=== PATIENT | male | born 1955 | race Caucasian/White ===

== ENCOUNTER 2016-09-08 23:39 | Inpatient (IN) | payer MEDICAID, OTHER ==
[~2016-09-08] VITALS: Ht 177.8 cm; Wt 79.3 kg
[~2016-09-08 23:39] MED LIST: ASPI81 PO; CARV6.252 PO; CYCL1PAK PO; DIGO0.25 PO; ENAL5TAB PO; LORT7.5T3 PO; NAPR550 PO; NEUR600T PO; NIAC500 PO; NITR.4 SL; OMEP20TA PO; SIMV40TA PO; SPIR25TA PO; TRAM50TA PO
[2016-09-08 23:41] VITALS: BP 163/93; PULSE 115; RESP 16; TEMP 98.4; O2SAT 94
[2016-09-09] VITALS (7 sets, daily range): BP systolic 132–164; BP diastolic 78–103; PULSE 91–98; RESP 16–21; TEMP 96.9–98; O2SAT 96–99
[2016-09-09] MEDS ORDERED: ASPI1TAB69 PO (02:53)
[2016-09-09] MEDS ORDERED: CARV6.252 PO (02:53)
[2016-09-09] MEDS ORDERED: ENAL5TAB PO (02:54)
[2016-09-09] MEDS ORDERED: CYCL1TAB29 PO (02:54)
[2016-09-09] MEDS ORDERED: DIGO0.25 PO (02:54)
[2016-09-09] MEDS ORDERED: GABA600T PO (02:55)
[2016-09-09] MEDS ORDERED: HYDR-2376 PO (02:56)
[2016-09-09] MEDS ORDERED: SIMV40TA PO (02:57)
[2016-09-09] MEDS ORDERED: TRAM50TA PO (02:57)
[2016-09-09] MEDS ORDERED: SPIR25TA PO (02:57)
[2016-09-09] MEDS ORDERED: NIAC500T5 PO (02:58)
[2016-09-09] MEDS ORDERED: OMEP20TA PO (02:58)
[2016-09-09] MEDS ORDERED: NITR1SUB3 SL (02:59)
[2016-09-09] MEDS ORDERED: LISI-515 PO (03:02)
[2016-09-09] MEDS ORDERED: VANCOMYCIN INJ 1,400 MG in SODIUM CHLORID 0.9% 500 ML INJ 500 ML IV STA (03:04)
[2016-09-09] MEDS ORDERED: PIPERACIL-TAZO 2.25 GM PREMIX 50 ML IV ONE ×2 (03:15→04:15)
[2016-09-09] MEDS ORDERED: SODIUM CHLOR 0.9% 1000 ML INJ 1,000 ML IV ONE (03:15)
[2016-09-09 03:26] LABS: AUTOMATED NEUTROPHIL # 9.2 TH/MM3 (1.8-7.7); BASOPHIL % 0.2 % (0.0-2.0); EOSINOPHIL # 0.1 TH/MM3 (0-0.4); EOSINOPHIL % 0.5 % (0.0-4.0); HEMATOCRIT 42.7 % (39.0-51.0); HEMO FLAGS DIFF FINAL; LYMPH % 10.8 % (9.0-44.0); LYMPHOCYTE # 1.3 TH/MM3 (1.0-4.8); MEAN CELL VOLUME 89.4 FL (80.0-100.0); MEAN CORPUSCULAR HEMOGLOBIN 31.2 PG (27.0-34.0); MEAN CORPUSCULAR HGB CONC 34.9 % (32.0-36.0); MONO % 9.5 % (0.0-8.0); PLATELET COUNT 106 TH/MM3 (150-450); RED BLOOD COUNT 4.77 MIL/MM3 (4.50-5.90); RED CELL DISTRIBUTION WIDTH 12.6 % (11.6-17.2); WHITE BLOOD COUNT 11.6 TH/MM3 (4.0-11.0)
[2016-09-09 03:37] LABS: APTT (PATIENT) 27.5 SEC (24.3-30.1); INTERNATIONAL NORMALIZED RATIO 0.9 RATIO; PROTHROMBIN TIME - PATIENT 10.2 SEC (9.8-11.6)
--- NOTE | 2016-09-09 03:41 | PD ---
HPI Chief Complaint: Edema Time Seen by Provider: 02:55 Travel History International Travel<30 days: No Contact w/Intl Traveler<30days: No Traveled to known affect area: No History of Present Illness HPI The patient's 61. He has had about 3-4 days of redness swelling and pain about the left elbow. 4 nights prior he drank alcohol until he lost consciousness. The next morning he woke up with minimal erythema pain and swelling about the left elbow distribution. It has since increased and is now constant and involves the proximal half of the forearm and about two thirds of the humerus. Pain is worse with range of motion at the elbow flexion/extension as well as supination pronation. He reports cold sweats last night. He denies fevers. He had a history of IV drug abuse but has not used drugs in greater than 10 years. He suffers with hep C as well as myocardial infarction 3 chronic back pain hypertension alcoholism and one half pack per day smoking habit. He has not had a similar type of rash/infection previously. PFSH Past Medical History High Cholesterol: Yes Diminished Hearing: No Herniated Disk: Yes (2 DISKS ) Hypertension: Yes Tetanus Vaccination: Never Vaccinated Influenza Vaccination: No Past Surgical History Cardiac Surgery: Yes (STENT) Cholecystectomy: Yes Other Surgery: Yes (BACK- HERNIA) Social History Alcohol Use: Yes (THURSDAY ) Tobacco Use: Yes (10 CIG PER DAY) Substance Use: No Allergies-Medications (Allergen,Severity, Reaction): Coded Allergies: No Known Allergies (Unverified , 09/09/16) Reported Meds & Prescriptions Reported Meds & Active Scripts Active Reported Lisinopril 20 Mg Tab 20 Mg PO DAILY Nitroglycerin SL (Nitroglycerin) 0.4 Mg Subl 0.4 Mg SL DIRECTED PRN ONE TABLET UNDER THE TONGUE NEEDED FOR CHEST PAIN, MAY REPEAT EVERY FIVE MINUTES FOR A TOTAL OF 3 DOSES OR CALL 911 IF NO RELIEF Niacin 500 Mg Tab 500 Mg PO DAILY Omeprazole 20 Mg Tab 20 Mg PO DAILY Simvastatin 40 Mg Tab 40 Mg PO HS Tramadol (Tramadol HCl) 50 Mg Tab 50 Mg PO Q6H PRN Hydrocodone-Acetaminophen 7.5-300 Mg Tab 1 Tab PO Q4H PRN Gabapentin 600 Mg Tab 600 Mg PO BID Digoxin 0.25 Mg Tab 0.25 Mg PO DAILY Flexeril (Cyclobenzaprine HCl) 10 Mg Tab 10 Mg PO TID Carvedilol 6.25 Mg Tab 6.25 Mg PO BID Aspirin 81 Mg Tabdr 81 Mg PO DAILY Review of Systems Except as stated in HPI: all other systems reviewed are Neg Skin: Positive Rash Physical Exam Narrative GENERAL: 61-year-old male mild distress well-nourished, cooperative SKIN: Warm and dry. Erythema warmth and tenderness from the midportion of the humerus the middle portion of the forearm on the left side. Erythema edema and warmth is circumferential. Passive flexion of the left elbow elicits severe pain. 2+ radial artery pulses bilaterally. HEAD: Atraumatic. Normocephalic. EYES: Pupils equal and round. No scleral icterus. No injection or drainage. ENT: No nasal bleeding or discharge. Mucous membranes pink and moist. NECK: Trachea midline. No JVD. CARDIOVASCULAR: Regular rhythm. Tachycardia. RESPIRATORY: No accessory muscle use. Clear to auscultation. Breath sounds equal bilaterally. GASTROINTESTINAL: Abdomen soft, non-tender, nondistended. Hepatic and splenic margins not palpable. MUSCULOSKELETAL: Extremities without clubbing, cyanosis, or edema. No obvious deformities. NEUROLOGICAL: Awake and alert. No obvious cranial nerve deficits. Motor grossly within normal limits. Five out of 5 muscle strength in the arms and legs. Normal speech. PSYCHIATRIC: Appropriate mood and affect; insight and judgment normal. Data Data Last Documented VS Vital Signs Date Time Temp Pulse Resp B/P Pulse Ox O2 Delivery O2 Flow Rate FiO2 09/09/16 03:19 16 09/09/16 03:19 98 Room Air 09/09/16 02:51 91 164/103 09/08/16 23:41 98.4 Orders Complete Blood Count With Diff (09/09/16 03:04) Comprehensive Metabolic Panel (09/09/16 03:04) Prothrombin Time / Inr (Pt) (09/09/16 03:04) Act Partial Throm Time (Ptt) (09/09/16 03:04) Lactic Acid Sepsis Protocol (09/09/16 03:04) Urinalysis - C+S If Indicated (09/09/16 03:04) Blood Culture (09/09/16 03:04) Blood Glucose (09/09/16 03:04) Ecg Monitoring (09/09/16 03:04) Iv Access Insert/Monitor (09/09/16 03:04) Oximetry (09/09/16 03:04) Oxygen Administration (09/09/16 03:04) Vancomycin Inj (Vancomycin Inj) (09/09/16 03:04) Piperacil-Tazo 2.25 Gm Premix (Zosyn 2.2 (09/09/16 03:15) Sodium Chlor 0.9% 1000 Ml Inj (Ns 1000 M (09/09/16 03:15) Elbow, Complete (4 Vws) (09/09/16 ) Piperacil-Tazo 2.25 Gm Premix (Zosyn 2.2 (09/09/16 04:15) Consult Orthopedic (09/09/16 ) Admit To Inpatient (09/09/16 ) Vital Signs (Adult) Q4H (09/09/16 04:43) Diet Heart Healthy (09/09/16 Breakfast) Sodium Chloride 0.9% Flush (Ns Flush) (09/09/16 09:00) Sodium Chloride 0.9% Flush (Ns Flush) (09/09/16 04:45) Sodium Chlor 0.9% 1000 Ml Inj (Ns 1000 M (09/09/16 04:43) Vancomycin Consult Pharmacy (Vancomycin (09/09/16 04:45) Acetaminophen (Tylenol) (09/09/16 04:45) Acetamin-Hydrocod 325-5 Mg ([place] 5-325 (09/09/16 04:45) Acetamin-Hydrocod 325-7.5 Mg ([place] 7.5 (09/09/16 04:45) Enoxaparin Inj (Lovenox Inj) (09/09/16 09:00) Inpatient Certification (09/09/16 ) Potassium Chloride (Kcl) (09/09/16 04:45) Piperacil-Tazo 3.375 Gm Premix (Zosyn 3. (09/09/16 08:00) Admit Order (Ed Use Only) (09/09/16 04:53) Labs Laboratory Tests Test 09/09/16 03:15 White Blood Count 11.6 TH/MM3 Red Blood Count 4.77 MIL/MM3 Hemoglobin 14.9 GM/DL Hematocrit 42.7 % Mean Corpuscular Volume 89.4 FL Mean Corpuscular Hemoglobin 31.2 PG Mean Corpuscular Hemoglobin 34.9 % Concent Red Cell Distribution Width 12.6 % Platelet Count 106 TH/MM3 Mean Platelet Volume 9.7 FL Neutrophils (%) (Auto) 79.0 % Lymphocytes (%) (Auto) 10.8 % Monocytes (%) (Auto) 9.5 % Eosinophils (%) (Auto) 0.5 % Basophils (%) (Auto) 0.2 % Neutrophils # (Auto) 9.2 TH/MM3 Lymphocytes # (Auto) 1.3 TH/MM3 Monocytes # (Auto) 1.1 TH/MM3 Eosinophils # (Auto) 0.1 TH/MM3 Basophils # (Auto) 0.0 TH/MM3 CBC Comment DIFF FINAL Differential Comment Prothrombin Time 10.2 SEC Prothromb Time International 0.9 RATIO Ratio Activated Partial 27.5 SEC Thromboplast Time Sodium Level 135 MEQ/L Potassium Level 3.4 MEQ/L Chloride Level 99 MEQ/L Carbon Dioxide Level 29.4 MEQ/L Anion Gap 7 MEQ/L Blood Urea Nitrogen 15 MG/DL Creatinine 1.15 MG/DL Estimat Glomerular Filtration 65 ML/MIN Rate Random Glucose 109 MG/DL Lactic Acid Level 0.8 mmol/L Calcium Level 9.2 MG/DL Total Bilirubin 0.6 MG/DL Aspartate Amino Transf 17 U/L (AST/SGOT) Alanine Aminotransferase 23 U/L (ALT/SGPT) Alkaline Phosphatase 76 U/L Total Protein 8.4 GM/DL Albumin 3.7 GM/DL [facility] Medical Decision Making Medical Screen Exam Complete: Yes Emergency Medical Condition: Yes Medical Record Reviewed: Yes Differential Diagnosis Cellulitis, sepsis, abscess, septic arthritis, inflammatory arthritis Narrative Course CBC & BMP Diagram 09/09/16 03:15 Lactic acid 0.8 LFTs normal INR 0.9 Last 24 hours Impressions Elbow X-Ray 09/09/16 0000 Signed Impressions: Service Date/Time: Friday, September 09, 2016 03:21 - CONCLUSION: 1. There is no evidence of acute fracture. No joint effusion is seen Rui oMra MD The patient will be admitted for IV antibiotics, Zosyn and vancomycin. Orthopedics evaluation for possible septic arthritis. There is pain with passive range of motion/flexion/extension of the left upper extremity. Case discussed with Domenico Torres. We will admit under Dr. Mercer. Dr Abernathy of orthopedic surgery evaluated the patient. MRI L elbow ordered. Diagnosis Primary Impression: Cellulitis of left elbow Additional Impressions: Cellulitis of left arm Hypokalemia Admitting Information Admitting Physician Requests: Admit Rony Kwok MD Sep 09, 2016 03:41
[2016-09-09 03:43] LABS: ALT (GPT) 23 U/L (12-78); ANION GAP 7 MEQ/L (5-15); AST (GOT) 17 U/L (15-37); BICARBONATE 29.4 MEQ/L (21.0-32.0); BLOOD UREA NITROGEN 15 MG/DL (7-18); CHLORIDE 99 MEQ/L (98-107); GLOMERULAR FILTRATION RATE 65 ML/MIN (>89); POTASSIUM 3.4 MEQ/L (3.5-5.1); SODIUM (NA) 135 MEQ/L (136-145)
[2016-09-09 03:45] LABS: ALKALINE PHOSPHATASE 76 U/L (45-117); TOTAL BILIRUBIN ADULT 0.6 MG/DL (0.2-1.0)
--- NOTE | 2016-09-09 04:10 | RADRPT ---
EXAM DATE/TIME: 09/09/2016 03:21 [facility] COMPARISON: No previous studies available for comparison. INDICATIONS : Left elbow redness and swelling. MEDICAL HISTORY : None. SURGICAL HISTORY : None. ENCOUNTER: Initial ACUITY: 3 days PAIN SCORE: 9/10 LOCATION: Left elbow FINDINGS: There is no evidence of acute fracture. Bony mineralization is normal. There is minimal spurring at t he triceps insertion. There is no evidence of joint effusion. CONCLUSION: 1. There is no evidence of acute fracture. No joint effusion is seen Rui Mora MD on September 09, 2016 at 4:08 Board Certified Radiologist. This report was verified electronically.
[2016-09-09] MEDS ORDERED: ACETAMINOPHEN/HYDROcodone 325 MG/5 MG TAB PO PRN (04:45)
[2016-09-09] MEDS ORDERED: POTASSIUM CHLORIDE 10 MEQ CONTROLLED RELEASE TAB PO ONE (04:45)
[2016-09-09] MEDS ORDERED: ACETAMINOPHEN/HYDROcodone 325 MG/7.5 MG TAB PO PRN (04:45)
[2016-09-09] MEDS ORDERED: ACETAMINOPHEN 500 MG CPLT PO PRN (04:45)
[2016-09-09] MEDS ORDERED: Vancomycin Consult Pharmacy 1 EA XX SCH (04:45)
[2016-09-09] MEDS: SODIUM CHLOR 0.9% 1000 ML INJ 1,000 ML IV SCH ×2 (06:29→14:44)
--- NOTE | 2016-09-09 06:55 | PD.ORT.PN ---
Subjective Subjective Remarks s/p fall while drunk 3 days ago does not remember fall. states was "blackout drunk". reports left elbow pain and swelling. Objective Vitals Vital Signs Date Time Temp Pulse Resp B/P Pulse Ox O2 Delivery O2 Flow Rate FiO2 09/09/16 05:39 91 16 162/87 98 Room Air 09/09/16 03:19 16 09/09/16 03:19 98 Room Air 09/09/16 02:51 91 20 164/103 96 Room Air 09/09/16 00:17 16 Room Air 09/08/16 23:41 98.4 115 16 163/93 94 Room Air Result Diagram: 09/09/16 0315 09/09/16 0315 Other Results Laboratory Tests Test 09/09/16 03:15 Prothrombin Time 10.2 SEC (9.8-11.6) Prothromb Time International 0.9 RATIO Ratio Imaging Last 24 hours Impressions Elbow X-Ray 09/09/16 0000 Signed Impressions: Service Date/Time: Friday, September 09, 2016 03:21 - CONCLUSION: 1. There is no evidence of acute fracture. No joint effusion is seen Rui Mora MD Objective Remarks LUE: +swelling of elbow. tender to touch. pain with motion. no pain in wrist or shoulder. NVI Assessment & Plan Assessment and Plan 1) Left elbow hematoma vs septic joint -resume diet -npo after MN -MRI today to evaluate for septic joint Obi Schmitt Sep 09, 2016 06:55
[2016-09-09] MEDS ORDERED: POTASSIUM CL 40 MEQ/30 ML LIQ UDC PO ONE (07:30)
[2016-09-09 07:56] LABS: BLOOD, URINE NEG (NEG); GLUCOSE,URINE NEG (NEG); KETONE, URINE NEG (NEG); MUCUS URINE FEW /lpf (OCC); NITRITE,URINE NEG (NEG); SQUAMOUS EPITHELIAL CELL URINE <1 /hpf (0-5); URINE COLOR YELLOW (YELLW/STRAW)
[2016-09-09 07:57] LABS: COMMENT (UR) CATH-CULT NOT IND; CULTURE IF INDICATED CATH CULTURE NOT IND
[2016-09-09] MEDS: PIPERACIL-TAZO 3.375 GM PREMIX 50 ML IV SCH ×3 (10:04→21:29)
[2016-09-09] MEDS: SODIUM CHLORIDE 0.9% FLUSH 5 ML FLUSH IV SCH ×2 (10:05→21:30)
[2016-09-09] MEDS: ENOXAPARIN SODIUM 40 MG/0.4 ML SYRINGE SQ SCH (10:08)
[2016-09-09] MEDS ORDERED: NITROGLYCERIN 0.4 MG SL 25 TABS/BTL SL PRN (10:15)
[2016-09-09] MEDS ORDERED: traMADol HCL 50 MG TAB PO PRN (10:15)
--- NOTE | 2016-09-09 10:58 | MH ---
cc: FERNANDO MERCER DATE OF ADMISSION: 09/09/2016 DATE OF 1955 CHIEF COMPLAINT Left elbow swelling and pain. TRAVEL No travel in less than 30 days. HISTORY OF PRESENT ILLNESS This is a pleasant 61-year-old male who according to the record and the patient was drinking a large amount of alcohol approximately three to four days ago. The patient lost consciousness and is unaware of any injury or falls. The patient awoke the next morning complaining of some erythema and pain with swelling around his left elbow. The pain and symptoms have continued to evolve over the past three days to the point that it is very painful to move in any direction pain. The patient says the pain is now constant and as stated he is unaware of what caused the swelling and induration. According to the record, the patient has a history of IV drug use, but has not used anything in the past 10 years. He does have a history of heart disease as well as hepatitis C and other comorbidities. The patient currently is a tobacco user. The patient does complain of some coughing at random. He states that he took his medications yesterday morning and takes them as prescribed. He is alert, responds to verbal stimuli, mild anxiety noted. The patient denies any headache. Denies any fever, no nausea, vomiting and is a fairly good historian. MEDICAL HISTORY 1. Hyperlipidemia 2. Degenerative disk disease 3. Hypertension 4. ETOH abuse 5. Cardiovascular disease PAST SURGICAL HISTORY 1. Cardiac stents 2. Cholecystectomy 3. Back surgery ALLERGIES No known allergies. MEDICATIONS Reported: 1. Lisinopril 2. Nitroglycerin sublingual 3. Niacin 4. Omeprazole 5. Simvastatin 6. Tramadol 7. Hydrocodone 8. Acetaminophen 9. Gabapentin 10. Digoxin 11. Flexeril 13. Coreg 14. Aspirin SOCIAL HISTORY The patient lives alone in an efficiency apartment. He admits to smoking a half a pack of cigarettes a day. Daily alcohol use. Last drink was three days ago. No illicit drug use. FAMILY HISTORY Heart disease and hypertension. REVIEW OF SYSTEMS A 12-point review was done. Positives noted painful left elbow with erythema and edema, anxiety mild, cough with generalized fatigue. Other systems are negative or unremarkable. PHYSICAL EXAMINATION VITAL SIGNS: Temperature is 98.4, pulse now 91, has been as high as 115 in the ER, respirations 16, blood pressure 162/87, O2 sat 98 on room air. GENERAL: A 61-year-old male, well nourished, resting on the stretcher, mild anxiety over current condition. HEENT: Atraumatic, normocephalic. PERRL at two. Mucous membranes are slightly pale, but moist. No nasal discharge. NECK: Supple. Trachea is midline. SKIN: His skin is warm and dry. As stated noted erythema and tenderness beginning in the humerus area. The erythema is noted in the forearm and up above the antecubital fossa. Radial pulse is 3+ bilateral. CARDIOVASCULAR: Regular rate and rhythm. No murmurs, rubs or gallops appreciated. No edema. Pulses are intact. RESPIRATORY: Essentially clear anteriorly and posteriorly with no wheezes, rales or rhonchi bilateral. GASTROINTESTINAL: Abdomen is soft, nontender, nondistended. Active bowel sounds in all for quadrants. MUSCULOSKELETAL: He can move his extremities with purpose with the noted pain in the left elbow and arm. 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 NEUROLOGIC: He is alert, oriented a fairly good historian. Normal speech. PSYCHIATRIC: Affect and mood is appropriate with some mild anxiety noted. DIAGNOSTIC DATA WBC count 11.6, RBC 4.77, hemoglobin 14.9, hematocrit 42.7, platelet count 106, neutrophil auto 79, monocyte auto 9.5. PT INR 0.9. Chemistry sodium 135, potassium 3.4, chloride 99, carbon dioxide 29.4, amnion gap 7, BUN 15, creatinine 1.15, random glucose 109, lactic acid 0.8, calcium 9.2, bilirubin 0.6, AST 17, ALT 23, alkaline phosphatase 76, total protein 8.4, albumin 3.7. Urine is yellow and clear. The pH is 6, specific gravity 1.013, trace of protein, negative for glucose, ketones, occult blood, nitrite or bilirubin. Urobilinogen is less than 2, negative leukocyte esterase, few amounts of urine mucus. Cath culture was not obtained. DIAGNOSTIC DATA Left elbow shows no evidence of acute fracture, no joint effusion is seen. ASSESSMENT/PLAN 1. sepsis with septic arthritis left elbow ? SEPTIC 2. Cellulitis left elbow and arm 3. Hypokalemia, mild 4. Hyponatremia, mild 5. Leukocytosis 6. Hypertension 7. ETOH abuse We are going to admit this patient for inpatient status. Vital signs will be at least every four hours, heart healthy diet, gentle hydration with sodium chloride to support, IV antibiotics with vancomycin and Zosyn. We will consult ID for his expert opinion. Ortho has been consulted for his expert opinion. The plan is to see the patient today, get an MRI of his left elbow n.p.o. him at midnight for any possible procedures that may need to be done in the morning. We will monitor all labs, vital signs, hydration which will include labs for in the morning. To my knowledge, the patient is full code, full aggressive care and we will follow. Dictated by CATRACHO Serrano Fernando Mercer MD JP/KIKE /9:01 AM /10:57 AM PT WAS SEEN AND EXAMINED ON DAY OF ADMISSION ABOVE, IN ER FACE TO FACE TIME SPENT WITH PT CHART WAS REVIEWED IN DETAIL, INCLUDING LABS MEDS AND RAD DATA NOTES WERE REVIEWED DARRIUS HAYDEN ABOUT PLAN OF CARE DARRIUS PT COUNCELLED ABOUT ANTI SMOKING AND CESSATION OF ETOH. PT UNDERSTOOD DARRIUS RN IN ER SKY
[2016-09-09] MEDS: NIACIN 100 MG TAB PO SCH (11:00)
--- NOTE | 2016-09-09 11:26 | MB ---
cc: JOSE A NIETO DATE OF ADMISSION: 09/08/2016 DATE OF CONSULTATION: 09/09/2016 REASON FOR CONSULTATION: Left elbow pain. CONSULTING PHYSICIAN Dr. Rony Kwok LUCAS Fabian is a 61-year-old male who presented emergency room with a complaint of approximately 3 days of elbow pain. He states that on Thursday nights he drank excessively. He passed out and had lost consciousness. He does not recall any falls or injuries. He has complained of increasing left elbow pain and swelling since Thursday morning. Pain is worse with movement. He also has a history of IV drug use approximately ten years ago. He also has a history myocardial infarction, hepatitis C, hypertension and alcohol abuse and tobacco dependence. He denies any skin wounds or specific injury to the elbow. Pain is worse with movement. PAST MEDICAL HISTORY/ILLNESSES 1. High cholesterol 2. Hypertension 3. herniated disk. SURGERIES 1. Cardiac stent placement 2. cholecystectomy 3. hernia repair. ALLERGIES NO KNOWN DRUG ALLERGIES. MEDICATIONS 1. Lisinopril 2. Nitroglycerin 3. Niacin 4. Omeprazole 5. Simvastatin 6. Tramadol 7. Hydrocodone 8. Gabapentin 9. Digoxin 10. Flexeril 11. Carvedilol 12. Aspirin SOCIAL HISTORY The patient drinks alcohol and smokes. He denies any current drug use. FAMILY HISTORY Noncontributory. REVIEW OF SYSTEMS The patient denies headache, visual changes, neck pain, chest pain, shortness of breath, abdominal pain, nausea or recent weight loss or numbness and of extremities. He complains of left elbow pain. Pain is worse with movement. PHYSICAL EXAMINATION IN GENERAL: The patient is a well-developed, well-nourished 61-year male in no acute distress. He is awake and alert. VITAL SIGNS: Vital signs: Temperature 90.4, pulse 91, respirations 16, blood pressure 162/87, O2 sat 90% on room air. HEAD, EYES, EARS, NOSE, AND THROAT: The patient is normocephalic. Pupils are equal. NECK: Soft, nontender. Trachea is midline. ABDOMEN: Soft, nontender, nondistended. EXTREMITIES: Examination of left arm reveals no pain with shoulder, wrist or finger motion. He has intact sensation radial and median nerve distribution. He has good cap refill is fingers. Examination of elbow reveals range of motion from approximately a degrees up to 100 degrees. He has diffuse swelling around the forearm. Forearm department are soft, compressible with no sign of compartment syndrome. There is no redness, erythema or warmth to the forearm. He is diffusely tender around the flexor and extensor muscles near the elbow. Examination of right arm reveals no pain with shoulder or wrist motion. Skin is intact. His radial pulses palpable. Sensation is intact in all fingers. Examination of bilateral lower extremities shows no pain with hip, knee or ankle motion. Skin is intact both feet. Dorsalis pedis pulses are palpable. X-RAYS X-rays of left elbow were reviewed x-rays revealed evidence of acute fracture-dislocation. IMPRESSION 1. Left elbow pain and swelling. 2. Alcohol abuse 3. Tobacco abuse. PLAN The options were discussed with the patient. At this point I do not see any gross signs of infection. However, he does have significant pain with elbow range of motion as well as moderate swelling of the forearm. At this point I would recommend an MRI of his elbow to evaluate for a possible abscess or possible joint effusion. He does have a joint effusion. He may need aspiration of possible surgical arthrotomy for irrigation debridement. I will follow up with the patient after MRI is completed. All questions were answered. A mid-level provider in my office, nurse practitioner or PA, may see this patient on a follow-up basis and continue to implement the objective of this plan including: Starting or adjusting medications, injections of muscle, tendon, bursa or joints, cast application, orthotic or brace application, physical therapy, further radiographic studies including x-ray, MRI, CT, ultrasounds or bone scan, vascular studies, neurologic studies, or other specialist consultations, and proceeding with surgical management as appropriate. MD SHIREEN Mcallister/anitra /10:57 AM /11:05 AM
[2016-09-09] MEDS ORDERED: GADODIAMIDE PF 287 MG/ML 5 ML VIAL (for RAD MRI) IV ONE (11:47)
[2016-09-09] MEDS: LISINOPRIL 20 MG TAB PO SCH (12:17)
[2016-09-09] MEDS: DIGOXIN 0.25 MG TAB PO SCH (12:17)
[2016-09-09] MEDS: PANTOPRAZOLE SOD 20 MG DELAYED RELEASE TAB PO SCH (12:17)
[2016-09-09] MEDS: CYCLOBENZAPRINE HCL 10 MG TAB PO SCH ×2 (12:17→17:29)
[2016-09-09] MEDS: ACETAMINOPHEN/HYDROcodone 325 MG/7.5 MG TAB PO PRN ×2 (12:18→17:25)
[2016-09-09] MEDS: CARVEDILOL 6.25 MG TAB PO SCH ×2 (12:18→21:30)
[2016-09-09] MEDS: GABAPENTIN 300 MG CAP PO SCH ×2 (12:18→21:30)
[2016-09-09] MEDS: ASPIRIN EC 81 MG TABEC PO SCH (12:18)
--- NOTE | 2016-09-09 13:10 | RADRPT ---
EXAM DATE/TIME: 09/09/2016 11:12 [facility] COMPARISON: No previous studies available for comparison. INDICATIONS : Abscess. Left elbow red and swollen. CONTRAST: 15 cc Omniscan (gadodiamide) IV MEDICAL HISTORY : Hepatitis C. Myocardial infarction. Hypertension. SURGICAL HISTORY : Coronary artery stent. Discectomy, lumbar. ENCOUNTER: Initial ACUITY: 2 day PAIN SCORE: 8/10 LOCATION: Left elbow TECHNIQUE: Multiplanar, multisequence MRI examination was performed without contrast and after the intravenous a dministration of gadolinium. FINDINGS: There are moderate nonspecific edematous changes involving the deep and superficial subcutaneous tiss ues of the elbow region circumferentially. There is edema signal involving portions of the distal bic eps, brachialis and brachioradialis muscles. There is a small irregularly shaped fluid signal collection with peripheral enhancement in the superf icial subcutaneous tissues of the antecubital fossa region just deep to and laterally adjacent to the bicipital tendon which is likely a small abscess collection. The collection has a maximum oblong dim ension of just over 3 cm. There is minimal elbow joint fluid present which appears fairly benign. Bone marrow signal is unremar kable throughout. CONCLUSION: Small superficial antecubital fossa abscess with cellulitic changes and mild myositis. Domenico Burnham MD on September 09, 2016 at 12:52 Board Certified Radiologist. This report was verified electronically.
--- NOTE | 2016-09-09 14:16 | PD.CONS ---
History of Present Illness Service Infectious disease Consult Requested By Dr Idalia Mercer Reason for Consult Evaluate patient with cellulitis in the left upper extremity, possible septic joint Primary Care Physician Familia Reagan DO Diagnoses: History of Present Illness Patient seen and examined. Records reviewed. Patient is a 61-year-old male presented to the hospital for further evaluation of worsening pain, redness, and swelling in his left elbow. His problems started about 3 days prior to admission when he woke up and he noted some redness and pain in his left elbow. The pain and swelling as well as redness goes around the antecubital area. He does not remember having any injury, and fall initially, but on further questioning there was apparently mentioned that he he fell. His symptoms persisted, and the pain was getting worse so he presented to the hospital for further evaluation and treatment. He does not remember having any fever or chills. He's had some cough around the same time that he started having symptoms, but denies any sputum production, sore throat, chest pain, or any shortness of breath. There is been no nausea or vomiting or abdominal pain or any urinary complaints. He denies having any insect bite or any cuts or bruising in his left upper extremity. There is a remote history of IV drug use, and patient claimed the last time he used drugs was about 10-12 years ago. Since admission he has not been febrile. Patient had an MRI in his left upper extremity and there was only a small monitor elbow joint fluid, but there was findings of an abscess in the antecubital fossa up plus findings suggestive of some myositis in the biceps, and brachioradialis, as well as brachialis muscle. His WBC is mildly elevated at 11. Infectious disease consultation has been requested to evaluate the patient. Review of Systems Constitutional: DENIES: Fever, Chills Eyes: DENIES: Eye pain Ears, nose, mouth, throat: DENIES: Nasal discharge, Oral lesions, Ear Pain, Epistaxis, Sinus Pain Respiratory: COMPLAINS OF: Cough, DENIES: Sputum production, Shortness of breath Cardiovascular: DENIES: Chest pain, Palpitations Gastrointestinal: DENIES: Abdominal pain, Diarrhea, Nausea, Vomiting, Difficulty Swallowing Genitourinary: DENIES: Dysuria, Nocturia Musculoskeletal: COMPLAINS OF: Joint pain, Muscle aches, Joint Swelling Integumentary: DENIES: Rash Hematologic/lymphatic: DENIES: Bruising, Lymphadenopathy Immunologic/allergic: DENIES: Urticaria Neurologic: DENIES: Headache Psychiatric: DENIES: Anxiety, Mood changes, Depression, Hallucinations Past Family Social History Allergies: Coded Allergies: No Known Allergies (Unverified , 09/09/16) Past Medical History Hyperlipidemia Degenerative disk disease Hypertension ETOH abuse Cardiovascular disease Back pain Chronic narcotic dependence Past Surgical History Previous cardiac catheterization and Cardiac stents Cholecystectomy Back surgery Active Ordered Medications Tylenol [place] Aspirin Coreg Flexeril Lanoxin Neurontin Prinivil Morphine Niacin SL NTG Protonix Zosyn Pravachol Ultram Vancomycin Social History The patient lives alone in an efficiency apartment. He admits to smoking a half a pack of cigarettes a day. Daily alcohol use. Last drink was three days ago. No illicit drug use. Chronically on narcotics for chronic pain, goes to a pain management clinic Remote hx of IVDU, last use was 12 years ago Physical Exam Vital Signs Vital Signs Date Time Temp Pulse Resp B/P Pulse Ox O2 Delivery O2 Flow Rate FiO2 09/09/16 05:39 91 16 162/87 98 Room Air 09/09/16 03:19 16 09/09/16 03:19 98 Room Air 09/09/16 02:51 91 20 164/103 96 Room Air 09/09/16 00:17 16 Room Air 09/08/16 23:41 98.4 115 16 163/93 94 Room Air Physical Exam GENERAL: This is a well-nourished, well-developed male, awake and alert, C/O pain in his LUE, not in respiratory distress. SKIN: Warm and dry, no generalized rash, ecchymosis or embolic lesions. HEAD: Atraumatic. Normocephalic. No temporal or scalp tenderness. EYES: [place] conjunctivae, no petechia or hemorrhage. Pupils equal round and reactive. Extraocular movements full and intact. No scleral icterus. No injection or drainage. ENT: Nose without bleeding, or purulent drainage. Moist oral mucosa, no oral thrush. Throat without erythema, or exudate. Uvula midline. Airway patent. NECK: Trachea midline. No JVD or lymphadenopathy. Supple, nontender, no meningeal signs. CARDIOVASCULAR: Regular rate and rhythm without murmurs, gallops, or rubs. RESPIRATORY: Clear to auscultation. Breath sounds equal bilaterally. No wheezes , rales, or rhonchi. GASTROINTESTINAL: Abdomen soft, non-tender, nondistended. Bowel sounds are present and normoactive. No hepato-splenomegaly, or palpable masses. No guarding. MUSCULOSKELETAL: Extremities without clubbing, cyanosis, or edema in both LE and in his RUE. No calf tenderness. Negative Homans sign bilaterally. In his LUE - he has area of erythema in his upper arm and proximal forearm, with significant tenderness and induration in antecubital fossa. Has decreased ROM in his elbow joint, but most of hjis swelling is around antecubital fossa NEUROLOGICAL: Awake and alert. Cranial nerves II through XII intact. Motor and sensory grossly within normal limits. Five out of 5 muscle strength in all muscle groups. Normal speech. PSYCH: Calm and cooperative LINE: PIV with no evidence of infection Laboratory Laboratory Tests Test 09/09/16 09/09/16 03:15 07:30 White Blood Count 11.6 Red Blood Count 4.77 Hemoglobin 14.9 Hematocrit 42.7 Mean Corpuscular Volume 89.4 Mean Corpuscular Hemoglobin 31.2 Mean Corpuscular Hemoglobin 34.9 Concent Red Cell Distribution Width 12.6 Platelet Count 106 Mean Platelet Volume 9.7 Neutrophils (%) (Auto) 79.0 Lymphocytes (%) (Auto) 10.8 Monocytes (%) (Auto) 9.5 Eosinophils (%) (Auto) 0.5 Basophils (%) (Auto) 0.2 Neutrophils # (Auto) 9.2 Lymphocytes # (Auto) 1.3 Monocytes # (Auto) 1.1 Eosinophils # (Auto) 0.1 Basophils # (Auto) 0.0 CBC Comment DIFF FINAL Differential Comment Erythrocyte Sedimentation Rate 24 Prothrombin Time 10.2 Prothromb Time International 0.9 Ratio Activated Partial 27.5 Thromboplast Time Sodium Level 135 Potassium Level 3.4 Chloride Level 99 Carbon Dioxide Level 29.4 Anion Gap 7 Blood Urea Nitrogen 15 Creatinine 1.15 Estimat Glomerular Filtration 65 Rate Random Glucose 109 Lactic Acid Level 0.8 Calcium Level 9.2 Total Bilirubin 0.6 Aspartate Amino Transf 17 (AST/SGOT) Alanine Aminotransferase 23 (ALT/SGPT) Alkaline Phosphatase 76 C-Reactive Protein 12.00 Total Protein 8.4 Albumin 3.7 Urine Color YELLOW Urine Turbidity CLEAR Urine pH 6.0 Urine Specific [place] 1.013 Urine Protein TRACE Urine Glucose (UA) NEG Urine Ketones NEG Urine Occult Blood NEG Urine Nitrite NEG Urine Bilirubin NEG Urine Urobilinogen LESS THAN 2.0 Urine Leukocyte Esterase NEG Urine RBC 1 Urine WBC 1 Urine Squamous Epithelial <1 Cells Urine Mucus FEW Microscopic Urinalysis Comment CATH-CULT NOT IND Date/Time Procedure Status Source Growth 09/09/16 03:15 Aerobic Blood Culture Received Blood Peripheral Pending 09/09/16 03:15 Anaerobic Blood Culture Received Blood Peripheral Pending Result Diagram: 09/09/16 0315 09/09/16 0315 Imaging RADIOLOGY STUDIES/FILMS REVIEWED Elbow X-Ray 09/09/16 0000 Signed Impressions: Service Date/Time: Friday, September 09, 2016 03:21 - CONCLUSION: 1. There is no evidence of acute fracture. No joint effusion is seen Rui Mora MD Elbow MRI 09/09/16 0000 Signed Impressions: Service Date/Time: Friday, September 09, 2016 11:12 - CONCLUSION: Small superficial antecubital fossa abscess with cellulitic changes and mild myositis. Domenico Burnham MD Assessment and Plan Assessment and Plan IMPRESSION Cellulitis in LUE with evidence of superficial abscess and myositis on MRI Known CAD Chronic pain, and on narcotics Remote hx IVDU Hx ETOH abuse RECOMMENDATION Orthopedic is evaluating patient, and patient currently on nothing by mouth for possible surgery in the morning Continue vancomycin Continue Zosyn Elevate the left upper extremity Follow cultures Monitor progress I will determine course of antibiotics once workup is completed, and cultures are finalized I will follow along with you. Thank you for this consultation Katilin Echeverria MD Sep 09, 2016 14:16
[2016-09-09] MEDS: VANCOMYCIN INJ 1,250 MG in SODIUM CHLOR 0.9% 250 ML INJ 250 ML IV SCH (17:24)
[2016-09-09] MEDS: PRAVASTATIN SOD 80 MG TAB PO SCH (21:30)
[2016-09-10] VITALS: BP 133/78; PULSE 88; RESP 20; TEMP 98.7; O2SAT 98
[2016-09-10] MEDS: SODIUM CHLOR 0.9% 1000 ML INJ 1,000 ML IV SCH ×3 (00:43→20:43)
[2016-09-10] MEDS: PIPERACIL-TAZO 3.375 GM PREMIX 50 ML IV SCH ×4 (01:39→21:00)
[2016-09-10] MEDS: MORPHINE SULFATE 4 MG/ML INJ IV PUSH PRN ×5 (04:15→22:17)
[2016-09-10 05:04] VITALS: BP 137/79; PULSE 91; RESP 21; TEMP 98; O2SAT 99
[2016-09-10 05:11] LABS: HEMATOCRIT 38.7 % (39.0-51.0); MEAN CELL VOLUME 89.7 FL (80.0-100.0); MEAN CORPUSCULAR HEMOGLOBIN 30.7 PG (27.0-34.0); MEAN CORPUSCULAR HGB CONC 34.2 % (32.0-36.0); PLATELET COUNT 102 TH/MM3 (150-450); RED BLOOD COUNT 4.32 MIL/MM3 (4.50-5.90); RED CELL DISTRIBUTION WIDTH 12.8 % (11.6-17.2); REVIEW FLAG FINAL; WHITE BLOOD COUNT 8.2 TH/MM3 (4.0-11.0)
[2016-09-10 05:32] LABS: BICARBONATE 24.8 MEQ/L (21.0-32.0); POTASSIUM 3.6 MEQ/L (3.5-5.1)
[2016-09-10] MEDS: VANCOMYCIN INJ 1,250 MG in SODIUM CHLOR 0.9% 250 ML INJ 250 ML IV SCH ×2 (05:56→18:07)
[2016-09-10] MEDS: ENOXAPARIN SODIUM 40 MG/0.4 ML SYRINGE SQ SCH (07:38)
[2016-09-10 07:53] VITALS: BP 136/84; PULSE 84; RESP 19; TEMP 98.2; O2SAT 97
[2016-09-10] MEDS: NIACIN 100 MG TAB PO SCH (08:22)
[2016-09-10] MEDS: CYCLOBENZAPRINE HCL 10 MG TAB PO SCH ×3 (08:22→18:06)
[2016-09-10] MEDS: GABAPENTIN 300 MG CAP PO SCH ×2 (08:22→21:01)
[2016-09-10] MEDS: CARVEDILOL 6.25 MG TAB PO SCH ×2 (08:22→21:01)
[2016-09-10] MEDS: LISINOPRIL 20 MG TAB PO SCH (08:22)
[2016-09-10] MEDS: DIGOXIN 0.25 MG TAB PO SCH (08:22)
[2016-09-10] MEDS: ASPIRIN EC 81 MG TABEC PO SCH (08:22)
[2016-09-10] MEDS: PANTOPRAZOLE SOD 20 MG DELAYED RELEASE TAB PO SCH (08:22)
[2016-09-10] MEDS: SODIUM CHLORIDE 0.9% FLUSH 5 ML FLUSH IV SCH ×2 (08:23→21:00)
--- NOTE | 2016-09-10 10:18 | HHI.PR ---
Subjective Remarks Patient is still has pain in the left elbow arm and forearm region. Still has swelling but somewhat less Erythema is less than yesterday. Still has limited range of motion No other complaint Review of system for 10 point system otherwise unremarkable Objective Objective Results - Vital Signs Date Time Temp Pulse Resp B/P Pulse Ox O2 Delivery O2 Flow Rate FiO2 09/10/16 07:53 98.2 84 19 136/84 97 09/10/16 05:04 98.0 91 21 137/79 99 09/10/16 00:00 98.7 88 20 133/78 98 09/09/16 20:31 98.0 98 21 136/78 99 09/09/16 18:25 18 09/09/16 17:03 97.8 98 18 132/78 98 09/09/16 16:00 97.8 98 18 132/78 98 09/09/16 15:35 96.9 94 20 135/80 96 I/O 09/09/16 09/09/16 09/09/16 09/10/16 09/10/16 09/10/16 07:00 15:00 23:00 07:00 15:00 23:00 Intake Total 480 ml 0 ml Output Total 300 ml 250 ml Balance -300 ml 230 ml 0 ml Intake Oral 480 ml 0 ml Output Urine Total 300 ml 250 ml # Voids 2 1 # Bowel Movements 1 1 Result Diagram: 09/10/16 0421 09/10/16 0421 Other Results Laboratory Tests Test 09/10/16 04:21 White Blood Count 8.2 Red Blood Count 4.32 Hemoglobin 13.2 Hematocrit 38.7 Mean Corpuscular Volume 89.7 Mean Corpuscular Hemoglobin 30.7 Mean Corpuscular Hemoglobin 34.2 Concent Red Cell Distribution Width 12.8 Platelet Count 102 Mean Platelet Volume 10.1 Sodium Level 140 Potassium Level 3.6 Chloride Level 106 Carbon Dioxide Level 24.8 Anion Gap 9 Blood Urea Nitrogen 11 Creatinine 1.15 Estimat Glomerular Filtration 65 Rate Random Glucose 178 Calcium Level 8.6 Date/Time Procedure Status Source Growth 09/09/16 03:15 Aerobic Blood Culture Received Blood Peripheral Pending 09/09/16 03:15 Anaerobic Blood Culture Received Blood Peripheral Pending Physical Exam Physical Exam VITAL SIGNS: Reviewed GENERAL: A 61-year-old male, well nourished, resting on the stretcher, mild anxiety over current condition. HEENT: Atraumatic, normocephalic. PERRL at two. Mucous membranes are slightly pale, but moist. No nasal discharge. NECK: Supple. Trachea is midline. SKIN: His skin is warm and dry. As stated noted erythema and tenderness beginning in the humerus area. The erythema is noted in the forearm and up above the antecubital fossa. Radial pulse is 3+ bilateral. CARDIOVASCULAR: Regular rate and rhythm. No murmurs, rubs or gallops appreciated. No edema. Pulses are intact. RESPIRATORY: Essentially clear anteriorly and posteriorly with no wheezes, rales or rhonchi bilateral. GASTROINTESTINAL: Abdomen is soft, nontender, nondistended. Active bowel sounds in all for quadrants. MUSCULOSKELETAL: He can move his extremities with purpose with the noted pain in the left elbow and arm. 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 NEUROLOGIC: He is alert, oriented a fairly good historian. Normal speech. PSYCHIATRIC: Affect and mood is appropriate with some mild anxiety noted. A/P Assessment and Plan 1. Arthritis/septic arthritis left elbow on admission 2. Cellulitis left elbow and arm 3. Hypokalemia, mild 4. Hyponatremia, mild 5. Leukocytosis 6. Hypertension 7. ETOH abuse Labs reviewed Low potassium better Low sodium better Increase C-reactive protein increase ESR Increase WBC count improved Low related count is stable Appreciate ID consult Antibiotics per ID appreciate orthopedic consult Vital signs will be heart healthy diet gentle hydration with sodium MRI of his left elbow report reviewed Discussed with patient Discussed with Andrea Pascal MD Sep 10, 2016 10:18
[2016-09-10 11:41] VITALS: BP 125/79; PULSE 80; RESP 19; TEMP 98.3; O2SAT 96
--- NOTE | 2016-09-10 16:02 | PD.ORT.PN ---
Subjective Subjective Remarks s/p left elbow pain and swelling. reports pain improving. Objective Vitals Vital Signs Date Time Temp Pulse Resp B/P Pulse Ox O2 Delivery O2 Flow Rate FiO2 09/10/16 11:41 98.3 80 19 125/79 96 09/10/16 07:53 98.2 84 19 136/84 97 09/10/16 05:04 98.0 91 21 137/79 99 09/10/16 00:00 98.7 88 20 133/78 98 09/09/16 20:31 98.0 98 21 136/78 99 09/09/16 18:25 18 09/09/16 17:03 97.8 98 18 132/78 98 I/O 09/09/16 09/09/16 09/09/16 09/10/16 09/10/16 09/10/16 07:00 15:00 23:00 07:00 15:00 23:00 Intake Total 480 ml 0 ml Output Total 300 ml 250 ml Balance -300 ml 230 ml 0 ml Intake Oral 480 ml 0 ml Output Urine Total 300 ml 250 ml # Voids 2 1 # Bowel Movements 1 1 Result Diagram: 09/10/16 0421 09/10/16 0421 Imaging Last 24 hours Impressions Elbow X-Ray 09/09/16 0000 Signed Impressions: Service Date/Time: Friday, September 09, 2016 03:21 - CONCLUSION: 1. There is no evidence of acute fracture. No joint effusion is seen Rui Mora MD Objective Remarks LUE: +swelling of elbow. tender to touch. motion of elbow from 90-110degrees. pain with extension. NVI Assessment & Plan Assessment and Plan 1) Left elbow hematoma vs septic joint -MRI reviewed. shows small abscess in anterior elbow. would like to attempt to proceed with nonop treatment with IV Abx. if antibiotics fail, then would consider I&D. -resume diet today -NPO after MN -will follow and resume diet/ make NPO accordingly in case needs to proceed with surgery Obi Schmitt Sep 10, 2016 16:02
[2016-09-10 16:31] VITALS: BP 136/84; PULSE 84; RESP 19; TEMP 98; O2SAT 97
[2016-09-10 19:40] VITALS: BP 128/84; PULSE 100; RESP 21; TEMP 98.7; O2SAT 94
[2016-09-10] MEDS: PRAVASTATIN SOD 80 MG TAB PO SCH (21:01)
[2016-09-11 00:17] VITALS: BP 131/74; PULSE 67; RESP 18; TEMP 98.7; O2SAT 97
[2016-09-11] MEDS: MORPHINE SULFATE 4 MG/ML INJ IV PUSH PRN ×5 (02:13→23:54)
[2016-09-11] MEDS: PIPERACIL-TAZO 3.375 GM PREMIX 50 ML IV SCH ×4 (02:13→22:27)
[2016-09-11 03:41] VITALS: BP 136/83; PULSE 79; RESP 21; TEMP 98.7; O2SAT 99
[2016-09-11] MEDS ORDERED: PHARMACY ORDERED LAB XX ONE (05:45)
[2016-09-11] MEDS: SODIUM CHLOR 0.9% 1000 ML INJ 1,000 ML IV SCH ×2 (06:43→10:34)
--- NOTE | 2016-09-11 07:11 | PD.ORT.PN ---
Subjective Subjective Remarks Patient still complains of left elbow pain. Elbow range of motion is improving. Swelling is also improved. Objective Vitals Vital Signs Date Time Temp Pulse Resp B/P Pulse Ox O2 Delivery O2 Flow Rate FiO2 09/11/16 03:41 98.7 79 21 136/83 99 09/11/16 00:17 98.7 67 18 131/74 97 09/10/16 23:10 18 09/10/16 19:40 98.7 100 21 128/84 94 09/10/16 16:31 98.0 84 19 136/84 97 09/10/16 11:41 98.3 80 19 125/79 96 09/10/16 07:53 98.2 84 19 136/84 97 Result Diagram: 09/10/16 0421 09/10/16 0421 Imaging Last 24 hours Impressions Elbow X-Ray 09/09/16 0000 Signed Impressions: Service Date/Time: Friday, September 09, 2016 03:21 - CONCLUSION: 1. There is no evidence of acute fracture. No joint effusion is seen Rui Mora MD Objective Remarks LUE: +swelling of elbow. tender to touch on the anterior aspect of his elbow. There is a area of fluctuance and erythema. motion of elbow from 40-110degrees. pain with extension. NVI Assessment & Plan Assessment and Plan 1) Left proximal forearm abscess -MRI reviewed. shows small abscess in anterior elbow. would like to attempt to proceed with nonop treatment with IV Abx. if antibiotics fail, then would consider I&D. -resume diet today -NPO--plan on surgery for irrigation and debridement of abscess today Serafin Abernathy MD Sep 11, 2016 07:11
[2016-09-11 07:22] VITALS: BP 140/85; PULSE 79; RESP 20; TEMP 97.9; O2SAT 93
[2016-09-11] MEDS: VANCOMYCIN INJ 1,250 MG in SODIUM CHLOR 0.9% 250 ML INJ 250 ML IV SCH (07:42)
--- NOTE | 2016-09-11 07:53 | HHI.PR ---
Subjective Remarks Pain localized in lt. elbow No SOB alert sitting on side of bed voiding in urinal. (Etelvina Valdez) Objective Objective Results - Vital Signs Date Time Temp Pulse Resp B/P Pulse Ox O2 Delivery O2 Flow Rate FiO2 09/11/16 07:42 16 09/11/16 07:22 97.9 79 20 140/85 93 09/11/16 03:41 98.7 79 21 136/83 99 09/11/16 00:17 98.7 67 18 131/74 97 09/10/16 19:40 98.7 100 21 128/84 94 09/10/16 16:31 98.0 84 19 136/84 97 09/10/16 11:41 98.3 80 19 125/79 96 09/10/16 07:53 98.2 84 19 136/84 97 (Etelvina Valdez) Result Diagram: 09/10/1642009/10/16420 ROS General: Other (10 Point ROS done, lt elbow pain, other systems negative) Neuro/MS: Other (edema and pain lt elbow) (Etelvina Valdez) Physical Exam Physical Exam PHYSICAL EXAMINATION GENERAL: This is a well-developed, well-nourished male who appears to be in no acute distress. He is alert and awake, oriented. afebrile HEAD: Normocephalic without any lesion or mass noted. Facial features appear symmetric. OROPHARYNGEAL: Oropharynx without erythema or edema. NECK: Supple. No nuchal rigidity or lymphadenopathy. Trachea midline without deviation. CARDIAC: Regular rhythm, regular rate, S1 and S2 are heard. Murmur none; no gallops or rubs. LUNGS: Clear to auscultation bilaterally. no wheeze, no rhonchi or rales. No use of accessory muscles on inspiration or expiration. No cough ABDOMEN: Soft, nontender, no organomegaly or masses. Bowel sounds are heard in all four quadrants. No rebound. No guarding. EXTREMITIES: Moderate amount of edema left elbow. Range of motion ok, but slow and guarded due to pain level.. Pulses equal bilateral. No cyanosis. NEUROLOGICAL: Patient mood and affect appropriate. No focal deficit SKIN:Warm and moist Objective Remarks I think I'm having some surgery today.I hope my elbow gets better. I havent been doing any drugs. (Etelvina Valdez) A/P Assessment and Plan 1. Arthritis/septic arthritis left elbow on admission 2. Cellulitis left elbow and arm 3. Hypokalemia, mild 4. Hyponatremia, mild 5. Leukocytosis 6. Hypertension 7. ETOH abuse Cellulitis in LUE with evidence of superficial abscess and myositis on MRI surgery plan for this am. NPO for now. Labs reviewed, afebrile, WBC ct, 8,2. normal range with IV antibiotic therapy Increase C-reactive protein increase ESR Blood sugar 178 DVT and PUD prophylaxis, Lovenox and Protonix Pain management elevate elbow. Appreciate ID consult appreciate orthopedic consult Vital signs stable and reviewed. heart healthy diet gentle hydration with sodium 100cc/hr activity, standing and sitting on side of bed. No acute anxiety or restlessness noted. Discussed with patient Discharge Planning initiated. Discussed With: Family (patient), Other (Dr. Mercer, pt. seen on his behalf) ( Etelvina Valdez) Assessment and Plan Patient seen and examined as above [id number] time spent with patient Meds reviewed Labs reviewed Discussed with RN Plan of care discussed with DIRECTOR OF QUALITY IMPROVEMENT Appreciate consultants input Discussed with patient (Andrea Mercer MD) Etelvina Valdez Sep 11, 2016 07:53 Andrea Mercer MD Sep 11, 2016 13:42
[2016-09-11] MEDS ORDERED: GENTAMICIN SULFATE 80 MG/2 ML VIAL ONE (08:32)
[2016-09-11] MEDS ORDERED: MIDAZOLAM HCL 2 MG/2 ML VIAL ONE (08:50)
[2016-09-11] MEDS ORDERED: FAMOTIDINE 20 MG/2 ML VIAL ONE (08:50)
[2016-09-11] MEDS ORDERED: DEXAMETHASONE SOD PHOS 4 MG/ML VIAL ONE (08:51)
[2016-09-11] MEDS ORDERED: SUGAMMADEX SODIUM 200 MG/2 ML VIAL IV PUSH ONE ×2 (08:54)
[2016-09-11] MEDS: CARVEDILOL 6.25 MG TAB PO SCH ×2 (09:00→22:28)
[2016-09-11] MEDS: SODIUM CHLORIDE 0.9% FLUSH 5 ML FLUSH IV SCH ×2 (09:00→21:00)
[2016-09-11] MEDS: ENOXAPARIN SODIUM 40 MG/0.4 ML SYRINGE SQ SCH (09:00)
[2016-09-11] MEDS: NIACIN 100 MG TAB PO SCH (09:00)
[2016-09-11] MEDS: ASPIRIN EC 81 MG TABEC PO SCH (09:00)
[2016-09-11] MEDS ORDERED: SODIUM CHLORIDE 0.9% FLUSH 5 ML FLUSH IVF PRN (09:45)
[2016-09-11] MEDS ORDERED: MORPHINE SULFATE 4 MG/ML INJ IV PUSH PRN (09:45)
--- NOTE | 2016-09-11 09:48 | PD.OP ---
cc: Serafin Quispe MD Operative Report Date of Surgery: Sep 11, 2016 Preoperative Diagnosis: Left proximal forearm abscess Postoperative Diagnosis: Procedure: Irrigation and debridement of left proximal forearm abscess Anesthesia: Gen. Surgeon: Serafin Quispe Weir Fisherman(s): FREDDY Polanco PA-C The surgical procedure was assisted by my physician assistant women's soccer coach. My P.A. presence was necessary throughout this case for the manipulation and positioning of the surgical extremity. My P.A. was assisting me throughout the duration of this procedure. The skill set of a physician assistant women's soccer coach was medically necessary to complete this procedure. During the surgical case the surgical assistant certified was working at the back table and the physician assistant women's soccer coach was directly assisting me. Operation and Findings: Rui was seen and evaluated preoperatively. He has had a 5 day history of left elbow pain. MRI revealed a small abscess in the proximal forearm near the antecubital fossa. Informed consent was obtained and operative site was marked. He was brought to operating room. He was given IV sedation and GETA. Antibiotics were held until cultures were obtained. Timeout procedure was performed. Left arm was prepped with alcohol followed by Hibiclens and draped in the usual sterile fashion. Procedure began with a 3 inch incision over the anterior proximal forearm. Subcutaneous tissues dissected with Bovie. Multiple veins were identified. Veins were ligated with Bovie electrocautery. At this point a deep abscess was identified. Approximately 30 cc of purulent fluid were evacuated. Fluid was obtained for cultures. Curettes and rongeurs were used to debride muscle and fascia. Overall the muscle appeared to be healthy and viable. After thorough debridement wound was thoroughly irrigated with sterile saline. A Dora drain was placed deep. Subcutaneous tissues closed with 3-0 PDS and skin was closed with 3-0 nylon. Sterile dressings were applied. He was awakened and transferred to recovery room in stable condition. Serafin Quispe MD Sep 11, 2016 09:48
[2016-09-11] MEDS ORDERED: Post-op Orders (for Pharmacy) MISC XX ONE (09:51)
[2016-09-11] MEDS ORDERED: fentaNYL CITRATE 250 MCG/5 ML AMP ONE (09:59)
[2016-09-11] MEDS ORDERED: *HYDROmorphone PF 1 MG VIAL PERIprocedural Use ONLY ONE (10:26)
[2016-09-11] MEDS ORDERED: ONDANSETRON HCL 4 MG/2 ML VIAL IVP PRN (11:00)
[2016-09-11] MEDS ORDERED: diphenhydrAMINE HCL 25 MG CAP PO PRN (11:00)
--- NOTE | 2016-09-11 11:19 | EKG ---
Date Performed: 09/11/2016 Time Performed: 08:47:12 PTAGE: 61 years EKG: Sinus rhythm ANTERIOR MYOCARDIAL INFARCTION , OF INDETERMINATE AGE INFERIOR MYOCARDIAL INFARCTION , PROBABLY OLD MODERATE T-WAVE ABNORMALITY, CONSIDER LATERAL ISCHEMIA ABNORMAL ECG NO PREVIOUS TRACING DOCTOR: Rm Rodriguez Interpretating Date/Time 09/11/2016 11:17:32
[2016-09-11 11:40] VITALS: BP 143/88; PULSE 73; RESP 18; TEMP 97; O2SAT 96
[2016-09-11] MEDS: GABAPENTIN 300 MG CAP PO SCH ×2 (13:53→22:27)
[2016-09-11] MEDS: PANTOPRAZOLE SOD 20 MG DELAYED RELEASE TAB PO SCH (13:53)
[2016-09-11] MEDS: DIGOXIN 0.25 MG TAB PO SCH (13:54)
[2016-09-11] MEDS: CYCLOBENZAPRINE HCL 10 MG TAB PO SCH ×3 (13:54→19:12)
[2016-09-11] MEDS: LISINOPRIL 20 MG TAB PO SCH (13:54)
[2016-09-11] MEDS ORDERED: ONDANSETRON HCL 4 MG/2 ML VIAL IV PUSH ONE (13:59)
[2016-09-11] MEDS ORDERED: PHENYLEPH/NS 1000 MCG/10 ML SYR IV ONE (13:59)
[2016-09-11] MEDS ORDERED: PROPOFOL 200 MG/20 ML AMP IV ONE (13:59)
[2016-09-11 15:45] VITALS: BP 137/81; PULSE 84; RESP 18; TEMP 96.6; O2SAT 96
[2016-09-11] MEDS: VANCOMYCIN INJ 1,500 MG in SODIUM CHLORID 0.9% 500 ML INJ 500 ML IV SCH (19:29)
[2016-09-11 20:00] VITALS: BP 118/61; PULSE 89; RESP 18; TEMP 97.2; O2SAT 94
[2016-09-11] MEDS: SODIUM CHLORIDE 0.9% FLUSH 5 ML FLUSH IVF SCH (21:00)
[2016-09-11] MEDS ORDERED: HYDR-3288 PO (21:50)
--- NOTE | 2016-09-11 21:52 | HHI.FF ---
Face to Face Verification Diagnosis: (1) Cellulitis of left elbow Nursing Dressing Changes: Daily dressing change, Emeka wrap, 4x4s, Xeroform I have seen patient Rui Castorena on 09/11/16. My clinical findings support the need for the requested home health care services because: Limited ability to care for self I certify that my clinical findings support that this patient is homebound because: Post-op weakness JULIANA HESTER PA-C Sep 11, 2016 21:52
[2016-09-11] MEDS: ACETAMINOPHEN/HYDROcodone 325 MG/7.5 MG TAB PO PRN (22:27)
[2016-09-11] MEDS: PRAVASTATIN SOD 80 MG TAB PO SCH (22:28)
[2016-09-12] VITALS (7 sets, daily range): BP systolic 115–156; BP diastolic 58–84; PULSE 73–83; RESP 18–20; TEMP 95.8–97.8; O2SAT 94–97
[2016-09-12] MEDS: PIPERACIL-TAZO 3.375 GM PREMIX 50 ML IV SCH ×4 (02:00→22:23)
[2016-09-12] MEDS: SODIUM CHLOR 0.9% 1000 ML INJ 1,000 ML IV SCH (02:06)
[2016-09-12] MEDS: ACETAMINOPHEN/HYDROcodone 325 MG/7.5 MG TAB PO PRN ×7 (04:02→22:22)
[2016-09-12] MEDS: VANCOMYCIN INJ 1,500 MG in SODIUM CHLORID 0.9% 500 ML INJ 500 ML IV SCH ×2 (06:03→17:45)
[2016-09-12] MEDS: MORPHINE SULFATE 4 MG/ML INJ IV PUSH PRN ×4 (06:04→23:05)
--- NOTE | 2016-09-12 06:40 | PD.ORT.PN ---
Subjective Subjective Remarks Patient status post left elbow abscess I&D . Pain is improving. Elbow range of motion is improving. Swelling is also improved. Objective Vitals Vital Signs Date Time Temp Pulse Resp B/P Pulse Ox O2 Delivery O2 Flow Rate FiO2 09/12/16 05:55 16 09/12/16 04:00 96.4 76 18 140/76 96 09/12/16 00:00 97.3 78 18 115/58 96 09/11/16 23:59 18 09/11/16 20:00 97.2 89 18 118/61 94 09/11/16 15:45 96.6 84 18 137/81 96 09/11/16 11:40 97.0 73 18 143/88 96 09/11/16 10:30 79 16 142/86 99 Nasal Cannula 2 09/11/16 10:15 81 16 143/83 99 Nasal Cannula 2 09/11/16 10:00 80 16 133/74 99 Nasal Cannula 2 09/11/16 09:53 97.4 110 16 109/73 99 Nasal Cannula 2 09/11/16 07:22 97.9 79 20 140/85 93 I/O 09/11/16 09/11/16 09/11/16 09/12/16 09/12/16 09/12/16 07:00 15:00 23:00 07:00 15:00 23:00 Intake Total 1000 ml 1705 ml 429 ml Output Total 50 ml Balance 950 ml 1705 ml 429 ml Intake Oral 0 ml 240 ml IV Total 400 ml 1465 ml 429 ml Other 600 ml Output Urine Total 0 ml Estimated Blood Loss 50 ml Other 0 ml # Voids 3 Result Diagram: 09/10/16 0421 09/10/16 0421 Imaging Last 24 hours Impressions Elbow X-Ray 09/09/16 0000 Signed Impressions: Service Date/Time: Friday, September 09, 2016 03:21 - CONCLUSION: 1. There is no evidence of acute fracture. No joint effusion is seen Rui Mora MD Objective Remarks LUE: Range of motion of elbow from 30-110degrees. clean dry dressing intact. NVI Assessment & Plan Assessment and Plan 1) Left proximal forearm abscess--postop day #1 status post I&D Elbow range of motion exercises IV antibiotics Change dressing and removed [place] drain on Thursday Serafin Abernathy MD Sep 12, 2016 06:40
[2016-09-12] MEDS: DIGOXIN 0.25 MG TAB PO SCH (08:54)
[2016-09-12] MEDS: CARVEDILOL 6.25 MG TAB PO SCH ×2 (08:54→22:23)
[2016-09-12] MEDS: PANTOPRAZOLE SOD 20 MG DELAYED RELEASE TAB PO SCH (08:54)
[2016-09-12] MEDS: LISINOPRIL 20 MG TAB PO SCH (08:54)
[2016-09-12] MEDS: GABAPENTIN 300 MG CAP PO SCH ×2 (08:54→22:22)
[2016-09-12] MEDS: CYCLOBENZAPRINE HCL 10 MG TAB PO SCH ×3 (08:55→17:44)
[2016-09-12] MEDS: NIACIN 100 MG TAB PO SCH (08:55)
[2016-09-12] MEDS: SODIUM CHLORIDE 0.9% FLUSH 5 ML FLUSH IVF SCH ×2 (09:00→21:00)
[2016-09-12] MEDS: ENOXAPARIN SODIUM 40 MG/0.4 ML SYRINGE SQ SCH (09:00)
[2016-09-12] MEDS: ASPIRIN EC 81 MG TABEC PO SCH (09:00)
[2016-09-12] MEDS: SODIUM CHLORIDE 0.9% FLUSH 5 ML FLUSH IV SCH ×2 (09:27→23:06)
--- NOTE | 2016-09-12 10:37 | HHI.IDPN ---
Subjective Subjective Remarks Notes reviewed Temps ok Had surgery yesterday, I and D abscess LUE C/O pain C/S pending Antibiotics Vancomycin Zosyn Lines PIV Past Medical History Hyperlipidemia Degenerative disk disease Hypertension ETOH abuse Cardiovascular disease Back pain Chronic narcotic dependence Past Surgical History Previous cardiac catheterization and Cardiac stents Cholecystectomy Back surgery Allergies: Coded Allergies: No Known Allergies (Unverified , 09/09/16) Objective . Vital Signs Date Time Temp Pulse Resp B/P Pulse Ox O2 Delivery O2 Flow Rate FiO2 09/12/16 09:18 97 Nasal Cannula 21 09/12/16 08:46 97.8 73 18 156/77 95 09/12/16 05:55 16 09/12/16 04:00 96.4 76 18 140/76 96 09/12/16 00:00 97.3 78 18 115/58 96 09/11/16 23:59 18 09/11/16 20:00 97.2 89 18 118/61 94 09/11/16 15:45 96.6 84 18 137/81 96 09/11/16 11:40 97.0 73 18 143/88 96 09/11/16 09/11/16 09/12/16 15:00 23:00 07:00 Intake Total 1000 ml 1705 ml 429 ml Output Total 50 ml Balance 950 ml 1705 ml 429 ml Intake Oral 0 ml 240 ml IV Total 400 ml 1465 ml 429 ml Other 600 ml Output Urine Total 0 ml Estimated Blood Loss 50 ml Other 0 ml # Voids 3 . Laboratory Tests Test 09/12/16 07:04 Creatinine 1.09 MG/DL Estimat Glomerular Filtration 69 ML/MIN Rate Microbiology Date/Time Procedure Status Source Growth 09/11/16 09:19 Gram Stain - Final Resulted Abscess Arm 09/11/16 09:19 Wound Culture Resulted Abscess Arm Pending 09/11/16 09:19 Acid Fast Stain Received Abscess Arm Pending 09/11/16 09:19 Mycobacterial Culture Received Abscess Arm Pending 09/11/16 09:19 Fungal Smear - Final Resulted Abscess Arm NO FUNGAL ELEMENTS SEEN. 09/11/16 09:19 Fungal Culture Resulted Abscess Arm Pending Imaging Elbow X-Ray 09/09/16 0000 Signed Impressions: Service Date/Time: Friday, September 09, 2016 03:21 - CONCLUSION: 1. There is no evidence of acute fracture. No joint effusion is seen Rui Mora MD Elbow MRI 09/09/16 0000 Signed Impressions: Service Date/Time: Friday, September 09, 2016 11:12 - CONCLUSION: Small superficial antecubital fossa abscess with cellulitic changes and mild myositis. Domenico Burnham MD Physical Exam GENERAL: awake and alert, not in respiratory distress. SKIN: Warm and dry, no generalized rash HEENT: [place] conjunctivae, no petechia or hemorrhage. No scleral icterus. Moist oral mucosa, no oral thrush. NECK: Supple, nontender, no meningeal signs. CARDIOVASCULAR: Regular rate and rhythm without murmurs, gallops, or rubs. RESPIRATORY: Clear to auscultation. Breath sounds equal bilaterally. No wheezes , rales, or rhonchi. GASTROINTESTINAL: Abdomen soft, non-tender, nondistended. Bowel sounds are present and normoactive. No hepato-splenomegaly, or palpable masses. No guarding. MUSCULOSKELETAL: Extremities without clubbing, cyanosis, or edema in both LE and in his RUE. No calf tenderness. LUE - he has improving erythema, has dressing in place, from surgery. ROM somewhat better. NEUROLOGICAL: Non-focal PSYCH: Calm and cooperative LINE: PIV with no evidence of infection Assessment & Plan Remarks IMPRESSION Cellulitis in LUE with evidence of superficial abscess and myositis on MRI - S/P I and D - C/S pending Known CAD Chronic pain, and on narcotics Remote hx IVDU Hx ETOH abuse RECOMMENDATION Continue vancomycin Continue Zosyn Elevate the left upper extremity Follow cultures - adjust Abx Monitor progress Will ask hospitalist to call ID sap bw consultant if there is any question regarding Abx once C/S are available Kaitlin Echeverria MD Sep 12, 2016 10:37 Elevate the left upper extremity Follow cultures Monitor progress I will determine course of antibiotics once workup is completed, and cultures are finalized Kaitlin Echeverria MD Sep 12, 2016 10:37
--- NOTE | 2016-09-12 12:13 | HHI.PR ---
Subjective Subjective Remarks no fever left elbow painful eating okay no cp no sob able to make fist, intact sensation left hand Review of Systems Constitutional Constitutional Remarks 12 point ROS completed, negative except as noted above Vitals/Results Intake & Output 09/11/16 09/11/16 09/12/16 15:00 23:00 07:00 Intake Total 1000 ml 1705 ml 429 ml Output Total 50 ml Balance 950 ml 1705 ml 429 ml Intake Oral 0 ml 240 ml IV Total 400 ml 1465 ml 429 ml Other 600 ml Output Urine Total 0 ml Estimated Blood Loss 50 ml Other 0 ml # Voids 3 Vital Signs Vital Signs Date Time Temp Pulse Resp B/P Pulse Ox O2 Delivery O2 Flow Rate FiO2 09/12/16 10:20 18 09/12/16 09:18 97 Nasal Cannula 21 09/12/16 08:46 97.8 73 18 156/77 95 09/12/16 05:55 16 09/12/16 04:00 96.4 76 18 140/76 96 09/12/16 00:00 97.3 78 18 115/58 96 09/11/16 20:00 97.2 89 18 118/61 94 09/11/16 15:45 96.6 84 18 137/81 96 CBC/BMP: 09/10/16 0421 09/12/16 0704 Lab Results Laboratory Tests Test 09/12/16 07:04 Creatinine 1.09 MG/DL Estimat Glomerular Filtration 69 ML/MIN Rate Physical Exam General General Appearance: Well Developed, Well Nourished, No Acute Distress, Comfortable Eyes Eye Exam: Pupils Equal, Pupils Reactive Ears & Nose Ears & Nose Exam: Nasal Mucosa [place] Throat Throat Exam: Oral Mucosa [place] & Moist Neck Neck Exam: Neck Supple, Trachea Midline Pulmonary Resp Exam: Clear Bilaterally, No Distress Cardiology CV Exam: Regular, Good Perfusion Gastrointestinal/Abdomen GI Exam: Soft, Non-Tender, Bowel Sounds Present, Non-Distended Musculoskeletal MS Remarks Left arm dressing D/I Integumentary Skin Exam: Warm, Dry, Ulcer(s) Extremeties Extremities Exam: No Edema, Pedal Pulses Palpable Neurologic Neuro Exam: Alert, Awake, Oriented, Speech Clear, Moving All Extremities, No Focal Deficits Psychiatric Psych Exam: Appropriate Responses VTE Prophylaxis VTE Prophylaxis Meds: Lovenox Assessment/Plan Problem List: (1) Cellulitis of left arm (2) Cellulitis of left elbow Assessment/Plan Cellulitis in LUE with evidence of superficial abscess and myositis on MRI Irrigation and debridement of left proximal forearm abscess 09/11 appreciate ortho input Wound care Appreciate ID input continue with abx Wound culture + MRSA Continue home meds Lovenox for DVT prophylaxis Labs reviewed, stable Not ready for dc, waiting on sens. and ID recommendations for abx D/W RN D/W Dr. Mercer D/W pt. This patient was seen by myself and Dr. Mercer, this note is written on his behalf. Tamra Gill Sep 12, 2016 12:13
[2016-09-12] MEDS ORDERED: OXYC30TA PO (14:12)
[2016-09-12] MEDS ORDERED: MORP1TAB24 PO (14:12)
[2016-09-12] MEDS: PRAVASTATIN SOD 80 MG TAB PO SCH (22:22)
[2016-09-13] VITALS (8 sets, daily range): BP systolic 75–136; BP diastolic 56–79; PULSE 62–108; RESP 15–20; TEMP 96.1–98; O2SAT 94–99
[2016-09-13] MEDS: PIPERACIL-TAZO 3.375 GM PREMIX 50 ML IV SCH ×2 (01:45→08:39)
[2016-09-13] MEDS: ACETAMINOPHEN/HYDROcodone 325 MG/7.5 MG TAB PO PRN ×3 (01:47→10:31)
[2016-09-13] MEDS: SODIUM CHLORIDE 0.9% FLUSH 5 ML FLUSH IV PRN ×3 (01:49→06:18)
[2016-09-13] MEDS: MORPHINE SULFATE 4 MG/ML INJ IV PUSH PRN ×4 (02:30→16:27)
[2016-09-13] MEDS ORDERED: PHARMACY ORDERED LAB XX ONE (05:45)
[2016-09-13] MEDS: VANCOMYCIN INJ 1,500 MG in SODIUM CHLORID 0.9% 500 ML INJ 500 ML IV SCH (06:19)
[2016-09-13] MEDS: SODIUM CHLORIDE 0.9% FLUSH 5 ML FLUSH IV SCH ×2 (08:39→21:00)
[2016-09-13] MEDS: ASPIRIN EC 81 MG TABEC PO SCH (08:40)
[2016-09-13] MEDS: DIGOXIN 0.25 MG TAB PO SCH (08:40)
[2016-09-13] MEDS: CARVEDILOL 6.25 MG TAB PO SCH ×2 (08:41→20:38)
[2016-09-13] MEDS: PANTOPRAZOLE SOD 20 MG DELAYED RELEASE TAB PO SCH (08:41)
[2016-09-13] MEDS: GABAPENTIN 300 MG CAP PO SCH ×2 (08:41→20:36)
[2016-09-13] MEDS: LISINOPRIL 20 MG TAB PO SCH (08:41)
[2016-09-13] MEDS: CYCLOBENZAPRINE HCL 10 MG TAB PO SCH ×3 (08:41→16:27)
[2016-09-13] MEDS: ENOXAPARIN SODIUM 40 MG/0.4 ML SYRINGE SQ SCH (08:44)
[2016-09-13] MEDS: SODIUM CHLORIDE 0.9% FLUSH 5 ML FLUSH IVF SCH ×2 (08:49→21:00)
[2016-09-13] MEDS: NIACIN 100 MG TAB PO SCH (09:00)
--- NOTE | 2016-09-13 11:36 | PD.ORT.PN ---
Subjective Post Op Day #: 2 Subjective Remarks pain in arm improved, but has chronic back pain. Objective Vitals Vital Signs Date Time Temp Pulse Resp B/P Pulse Ox O2 Delivery O2 Flow Rate FiO2 09/13/16 08:00 96.6 74 15 129/77 97 09/13/16 07:16 15 09/13/16 04:00 97.0 108 20 75/57 95 89/56 09/13/16 01:10 99 09/13/16 00:00 98.0 74 18 136/74 99 09/12/16 20:52 97.0 82 20 142/84 97 09/12/16 16:03 96.8 83 18 152/81 96 09/12/16 12:44 95.8 75 18 126/68 94 I/O 09/12/16 09/12/16 09/12/16 09/13/16 09/13/16 09/13/16 07:00 15:00 23:00 07:00 15:00 23:00 Intake Total 429 ml Balance 429 ml IV Total 429 ml # Voids 4 3 # Bowel Movements 1 2 Result Diagram: 09/10/16 0421 09/12/16 0704 Imaging Last 24 hours Impressions Elbow X-Ray 09/09/16 0000 Signed Impressions: Service Date/Time: Friday, September 09, 2016 03:21 - CONCLUSION: 1. There is no evidence of acute fracture. No joint effusion is seen Rui Mora MD Objective Remarks LUE: Range of motion of elbow from 30-120degrees. clean dry dressing intact. NVI Assessment & Plan Ortho Post Op Day #: 2 Problem List: Assessment and Plan 1) Left proximal forearm abscess--postop day #2 status post I&D Elbow range of motion exercises IV antibiotics Change dressing and removed [place] drain on Thursday Jhony Lopez Sep 13, 2016 11:36
--- NOTE | 2016-09-13 13:25 | HHI.PR ---
Subjective Subjective Remarks walking around room, no difficulties very angry, wants home pain meds restarted no fever no cp no sob BP low overnight , RN not sure what occurred last night pt. not symptomatic Review of Systems Constitutional Constitutional Remarks 12 point ROS completed, negative except as noted above Vitals/Results Intake & Output 09/12/16 09/12/16 09/13/16 15:00 23:00 07:00 # Voids 4 3 # Bowel Movements 1 2 Vital Signs Vital Signs Date Time Temp Pulse Resp B/P Pulse Ox O2 Delivery O2 Flow Rate FiO2 09/13/16 12:00 96.8 62 19 120/74 98 09/13/16 11:31 15 09/13/16 10:49 15 09/13/16 08:30 96 21 09/13/16 08:00 96.6 74 15 129/77 97 09/13/16 04:00 97.0 108 20 75/57 95 89/56 09/13/16 01:10 99 09/13/16 00:00 98.0 74 18 136/74 99 09/12/16 20:52 97.0 82 20 142/84 97 09/12/16 16:03 96.8 83 18 152/81 96 CBC/BMP: 09/10/16 0421 09/12/16 0704 Lab Results Laboratory Tests Test 09/13/16 05:50 Vancomycin Level Trough 18.1 MCG/ML Physical Exam General General Appearance: Well Developed, Well Nourished, No Acute Distress, Comfortable Eyes Eye Exam: Pupils Equal, Pupils Reactive Ears & Nose Ears & Nose Exam: Nasal Mucosa [place] Throat Throat Exam: Oral Mucosa [place] & Moist Neck Neck Exam: Neck Supple, Trachea Midline Pulmonary Resp Exam: Clear Bilaterally, No Distress Cardiology CV Exam: Regular, Good Perfusion Gastrointestinal/Abdomen GI Exam: Soft, Non-Tender, Bowel Sounds Present, Non-Distended Musculoskeletal MS Remarks Left arm dressing D/I Integumentary Skin Exam: Warm, Dry, Ulcer(s) Extremeties Extremities Exam: No Edema, Pedal Pulses Palpable Neurologic Neuro Exam: Alert, Awake, Oriented, Speech Clear, Moving All Extremities, No Focal Deficits Psychiatric Psych Exam: Appropriate Responses VTE Prophylaxis VTE Prophylaxis Meds: Lovenox Assessment/Plan Problem List: (1) Cellulitis of left arm (2) Cellulitis of left elbow (3) CAD (coronary artery disease) (4) HTN (hypertension) (5) Chronic pain Assessment/Plan Cellulitis in LUE with evidence of superficial abscess and myositis on MRI Irrigation and debridement of left proximal forearm abscess 09/11 appreciate ortho input Wound care Appreciate ID input continue with abx Wound culture + MRSA DC Zosyn, continue Vanco Lovenox for DVT prophylaxis Resume Oxycodone and Morphine IR, DC all other narcotics. Change Morphine to PRN for breakthrough Wound care to be done per surgery tomorrow Hopefully dc on Thursday D/W RN D/W Dr. Mercer D/W pt. This patient was seen by myself and Dr. Mercer, this note is written on his behalf. Problem Qualifiers (1) CAD (coronary artery disease): Qualified Code: I25.10 - Coronary artery disease involving [place] coronary artery of [place] heart without angina pectoris (2) HTN (hypertension): Qualified Code: I10 - Essential hypertension (3) Chronic pain: Qualified Code: G89.4 - Chronic pain syndrome Tamra Gill Sep 13, 2016 13:25
[2016-09-13] MEDS ORDERED: MORPHINE SULFATE 15 MG CONTROLLED RELEASE TAB PO PRN (13:45)
[2016-09-13] MEDS: VANCOMYCIN INJ 1,250 MG in SODIUM CHLOR 0.9% 250 ML INJ 250 ML IV SCH (16:27)
[2016-09-13] MEDS: MORPHINE SULFATE 15 MG CONTROLLED RELEASE TAB PO SCH (20:37)
[2016-09-13] MEDS: PRAVASTATIN SOD 80 MG TAB PO SCH (20:37)
[2016-09-14] VITALS (8 sets, daily range): BP systolic 122–158; BP diastolic 69–88; PULSE 68–82; RESP 16–20; TEMP 96.8–98.7; O2SAT 93–98
[2016-09-14] MEDS: MORPHINE SULFATE 4 MG/ML INJ IV PUSH PRN ×3 (03:38→22:36)
[2016-09-14] MEDS: SODIUM CHLORIDE 0.9% FLUSH 5 ML FLUSH IV PRN ×4 (03:39→22:37)
[2016-09-14] MEDS: VANCOMYCIN INJ 1,250 MG in SODIUM CHLOR 0.9% 250 ML INJ 250 ML IV SCH ×2 (05:53→18:23)
[2016-09-14] MEDS: SODIUM CHLORIDE 0.9% FLUSH 5 ML FLUSH IVF SCH ×2 (08:51→21:00)
[2016-09-14] MEDS: SODIUM CHLORIDE 0.9% FLUSH 5 ML FLUSH IV SCH ×2 (08:51→21:13)
[2016-09-14] MEDS: DIGOXIN 0.25 MG TAB PO SCH (08:52)
[2016-09-14] MEDS: CARVEDILOL 6.25 MG TAB PO SCH ×2 (08:52→21:09)
[2016-09-14] MEDS: CYCLOBENZAPRINE HCL 10 MG TAB PO SCH ×3 (08:52→18:23)
[2016-09-14] MEDS: PANTOPRAZOLE SOD 20 MG DELAYED RELEASE TAB PO SCH (08:52)
[2016-09-14] MEDS: ASPIRIN EC 81 MG TABEC PO SCH (08:52)
[2016-09-14] MEDS: GABAPENTIN 300 MG CAP PO SCH ×2 (08:52→21:08)
[2016-09-14] MEDS: LISINOPRIL 20 MG TAB PO SCH (08:52)
[2016-09-14] MEDS: NIACIN 100 MG TAB PO SCH (08:53)
[2016-09-14] MEDS: MORPHINE SULFATE 15 MG CONTROLLED RELEASE TAB PO SCH ×2 (08:53→21:09)
[2016-09-14] MEDS: ENOXAPARIN SODIUM 40 MG/0.4 ML SYRINGE SQ SCH (08:53)
--- NOTE | 2016-09-14 09:15 | HHI.PR ---
Subjective Subjective Remarks Alert, oriented, talkative Sitting up in bed Appetite good Left arm soreness, moving moving left fingers and hand appropriately (Etelvina Valdez) Review of Systems Constitutional Constitutional: Weakness (mild left arm) Constitutional Remarks 10 point ROS done, positives noted mild weakness soreness in left forearm, constipation,. All other systems negative or unremarkable (Etelvina Valdez) GI/Abdomen GI/Abdominal Exam: Constipation (mild,) (Etelvina Valdez) Integumentary Skin: Wounds Skin Remarks Forearm bandaged, clean dry and intact. [place] drain, status post I&D day 3 ( Etelvina Valdez) Vitals/Results Intake & Output 09/13/16 09/13/16 09/14/16 15:00 23:00 07:00 # Voids 4 4 # Bowel Movements 1 0 Vital Signs Vital Signs Date Time Temp Pulse Resp B/P Pulse Ox O2 Delivery O2 Flow Rate FiO2 09/14/16 08:22 96.8 68 16 128/82 96 09/14/16 05:28 98.7 70 18 133/78 93 09/14/16 00:00 98.7 71 18 128/77 94 09/13/16 20:00 96.6 75 16 127/68 94 09/13/16 18:42 21 09/13/16 16:32 16 09/13/16 16:27 18 09/13/16 16:00 96.1 72 18 126/79 98 09/13/16 12:00 96.8 62 19 120/74 98 09/13/16 11:31 15 (Etelvina Valdez) CBC/BMP: 09/10/16 0421 09/14/16 0709 Lab Results Laboratory Tests Test 09/14/16 07:09 Creatinine 1.25 MG/DL Estimat Glomerular Filtration 59 ML/MIN Rate Imaging Remarks Last Impressions Elbow X-Ray 09/09/16 0000 Signed Impressions: Service Date/Time: Friday, September 09, 2016 03:21 - CONCLUSION: 1. There is no evidence of acute fracture. No joint effusion is seen Rui Mora MD Elbow MRI 09/09/16 0000 Signed Impressions: Service Date/Time: Friday, September 09, 2016 11:12 - CONCLUSION: Small superficial antecubital fossa abscess with cellulitic changes and mild myositis. Domenico Burnham MD Current Medications Active Medications Morphine Sulfate (Oramorph Sr) 15 mg BID PO Last administered on 09/14/16 08:53 ; Admin Dose 15 MG; Start 09/13/16 at 21:00 Morphine Sulfate (Oramorph Sr) 15 mg BID PRN PO; Start 09/13/16 at 13:45; Stop 09/13/16 at 14:19; Status DC Oxycodone HCl (Roxicodone) 30 mg TID PRN PO Last administered on 09/14/16 05: 55; Admin Dose 30 MG; Start 09/13/16 at 13:45 Vancomycin HCl/ Sodium Chloride (Vancomycin Inj/ NS 250 ml Inj) 262.5 ml @ 262.5 mls/ hr Q12H IV Last administered on 09/14/16 05:53; Admin Dose 262.5 MLS /HR; Start 09/13/16 at 18:00 (Etelvina Valdez. HEARING THERAPY DIRECTOR) Physical Exam General General Appearance: Well Developed, Well Nourished, No Acute Distress, Comfortable (Courtney,Susan M. HEARING THERAPY DIRECTOR) Eyes Eye Exam: Pupils Equal, Pupils Reactive (Courtney,Susan M. HEARING THERAPY DIRECTOR) Ears & Nose Ears & Nose Exam: Nasal Mucosa [place] (Etelvina Valdez M. HEARING THERAPY DIRECTOR) Throat Throat Exam: Oral Mucosa [place] & Moist (Etelvina Valdez M. HEARING THERAPY DIRECTOR) Neck Neck Exam: Neck Supple, Trachea Midline (Henning,Susan M. HEARING THERAPY DIRECTOR) Pulmonary Resp Exam: Clear Bilaterally, No Distress (Etelvina Valdez M. HEARING THERAPY DIRECTOR) Cardiology CV Exam: Regular, Good Perfusion (CourtneyBrisaEtelvina M. HEARING THERAPY DIRECTOR) Gastrointestinal/Abdomen GI Exam: Soft, Non-Tender, Bowel Sounds Present, Non-Distended (CourtneyBrisaEtelvina M. HEARING THERAPY DIRECTOR) Musculoskeletal MS Exam: Joints Intact MS Remarks Moving hand and all 5 fingers on left side. Improving strength (Etelvina Valdez M. HEARING THERAPY DIRECTOR) Integumentary Skin Exam: Warm, Dry, Ulcer(s) (Etelvina Valdez M. HEARING THERAPY DIRECTOR) Extremeties Extremities Exam: No Edema, Pedal Pulses Palpable (Etelvina Valdez) Neurologic Neuro Exam: Alert, Awake, Oriented, Speech Clear, Moving All Extremities, No Focal Deficits (Etelvina Valdez) Psychiatric Psych Exam: Appropriate Responses (Etelvina Valdez) VTE Prophylaxis VTE Prophylaxis Meds: Lovenox (Etelvina Valdez) Assessment/Plan Problem List: (1) Cellulitis of left arm (2) Cellulitis of left elbow (3) CAD (coronary artery disease) (4) HTN (hypertension) (5) Chronic pain Assessment/Plan Cellulitis in LUE with evidence of superficial abscess and myositis on MRI Irrigation and debridement of left proximal forearm abscess 09/11, postop day 3 appreciate ortho input Wound care, dressing changed today per nurse. Will remove Dora drain. Today Encourage exercise left hand and left fingers, movement. No major edema, improving leukocytosis resolved, WBC count 8.2 Hemoglobin normal, chemistry levels normal, monitor any needs Encourage diet and by mouth fluids Appreciate ID input continue with abx Wound culture + MRSA Contact isolation continue Vanco Lovenox for DVT prophylaxis Resume Oxycodone and Morphine IR, Change Morphine to PRN for breakthrough Wound care to be done per surgery tomorrow Plan dc on Thursday D/W RN D/W Dr. Mercer, patient seen on his behalf D/W pt. (Eetlvina Valdez) Assessment/Plan Pt seen and examined face to face time spent with pt labs reviwed meds reviewed dw rn dw supervisor [employer] plan of care dw pt (Andrea Mercer MD) Problem Qualifiers (1) CAD (coronary artery disease): Qualified Code: I25.10 - Coronary artery disease involving [place] coronary artery of [place] heart without angina pectoris (2) HTN (hypertension): Qualified Code: I10 - Essential hypertension (3) Chronic pain: Qualified Code: G89.4 - Chronic pain syndrome Etelvina Valdez Sep 14, 2016 09:15 Andrea Mercer MD Sep 14, 2016 13:00
[2016-09-14] MEDS: PRAVASTATIN SOD 80 MG TAB PO SCH (21:09)
[2016-09-15] VITALS: BP 124/74; PULSE 80; RESP 20; TEMP 96.4; O2SAT 96
[2016-09-15] MEDS: MORPHINE SULFATE 4 MG/ML INJ IV PUSH PRN ×3 (03:20→13:23)
[2016-09-15] MEDS: SODIUM CHLORIDE 0.9% FLUSH 5 ML FLUSH IV PRN (03:21)
[2016-09-15 04:52] VITALS: BP 133/76; PULSE 74; RESP 20; TEMP 96.7; O2SAT 96
[2016-09-15] MEDS: VANCOMYCIN INJ 1,250 MG in SODIUM CHLOR 0.9% 250 ML INJ 250 ML IV SCH (05:54)
--- NOTE | 2016-09-15 07:01 | PD.ORT.PN ---
Subjective Subjective Remarks POD 4 s/p I&D left elbow cultures grew MRSA doing well. pain and motion improved Objective Vitals Vital Signs Date Time Temp Pulse Resp B/P Pulse Ox O2 Delivery O2 Flow Rate FiO2 09/15/16 04:52 96.7 74 20 133/76 96 09/15/16 00:00 96.4 80 20 124/74 96 09/14/16 20:37 96.9 75 20 122/69 95 09/14/16 18:26 96 21 09/14/16 16:44 96.9 72 17 158/88 96 09/14/16 12:15 96.8 82 17 146/84 98 09/14/16 10:20 94 09/14/16 09:53 16 09/14/16 08:22 96.8 68 16 128/82 96 I/O 09/14/16 09/14/16 09/14/16 09/15/16 09/15/16 09/15/16 07:00 15:00 23:00 07:00 15:00 23:00 Intake Total 960 ml Balance 960 ml Intake Oral 960 ml # Voids 4 3 3 3 # Bowel Movements 0 Result Diagram: 09/14/16 0709 Imaging Last 24 hours Impressions Elbow X-Ray 09/09/16 0000 Signed Impressions: Service Date/Time: Friday, September 09, 2016 03:21 - CONCLUSION: 1. There is no evidence of acute fracture. No joint effusion is seen Rui Mora MD Objective Remarks LUE: Range of motion of elbow from 5-135 degrees. clean dry dressing intact. NVI Assessment & Plan Assessment and Plan 1) Left proximal forearm abscess--postop day #4 status post I&D Elbow range of motion exercises IV antibiotics per infectious disease daily dressing changes ID for home IV abx ortho cleared for DC f/u wtih Dinesh or KANNAN in 2 weeks Obi Schmitt Sep 15, 2016 07:01
[2016-09-15 08:00] VITALS: BP 143/85; PULSE 75; RESP 19; TEMP 97.7; O2SAT 96
[2016-09-15] MEDS: ASPIRIN EC 81 MG TABEC PO SCH (08:09)
[2016-09-15] MEDS: CARVEDILOL 6.25 MG TAB PO SCH (08:13)
[2016-09-15] MEDS: DIGOXIN 0.25 MG TAB PO SCH (08:13)
[2016-09-15] MEDS: LISINOPRIL 20 MG TAB PO SCH (08:13)
[2016-09-15] MEDS: GABAPENTIN 300 MG CAP PO SCH (08:13)
[2016-09-15] MEDS: CYCLOBENZAPRINE HCL 10 MG TAB PO SCH ×2 (08:13→13:00)
[2016-09-15] MEDS: PANTOPRAZOLE SOD 20 MG DELAYED RELEASE TAB PO SCH (08:13)
[2016-09-15] MEDS: NIACIN 100 MG TAB PO SCH (08:14)
[2016-09-15] MEDS: ENOXAPARIN SODIUM 40 MG/0.4 ML SYRINGE SQ SCH (08:14)
[2016-09-15] MEDS: MORPHINE SULFATE 15 MG CONTROLLED RELEASE TAB PO SCH (08:14)
[2016-09-15] MEDS ORDERED: LEVA500T PO ×2 (11:57→13:08)
[2016-09-15 12:00] VITALS: BP 117/62; PULSE 78; RESP 19; TEMP 97; O2SAT 97
--- NOTE | 2016-09-15 12:01 | HHI.PR ---
Subjective Remarks Pain is controlled with pain medication No more swelling As the patient more looks really good Good range of motion Had bowel movement yesterday No other complaint Review of system for 10 point system otherwise unremarkable Objective Objective Results - Vital Signs Date Time Temp Pulse Resp B/P Pulse Ox O2 Delivery O2 Flow Rate FiO2 09/15/16 08:00 97.7 75 19 143/85 96 09/15/16 04:52 96.7 74 20 133/76 96 09/15/16 00:00 96.4 80 20 124/74 96 09/14/16 20:37 96.9 75 20 122/69 95 09/14/16 18:26 96 21 09/14/16 16:44 96.9 72 17 158/88 96 09/14/16 12:15 96.8 82 17 146/84 98 I/O 09/14/16 09/14/16 09/14/16 09/15/16 09/15/16 09/15/16 07:00 15:00 23:00 07:00 15:00 23:00 Intake Total 960 ml Balance 960 ml Intake Oral 960 ml # Voids 4 3 3 3 # Bowel Movements 0 Result Diagram: 09/14/16 0709 Other Results Date/Time Procedure Status Source Growth 09/11/16 09:19 Gram Stain - Final Complete Abscess Arm 09/11/16 09:19 Wound Culture - Final Complete S. Aureus Mrsa 09/11/16 09:19 Fungal Smear - Final Resulted Abscess Arm NO FUNGAL ELEMENTS SEEN. 09/11/16 09:19 Fungal Culture Resulted Abscess Arm Pending 09/11/16 09:19 Acid Fast Stain - Final Resulted Abscess Arm NO ACID FAST BACILLI SEEN 09/11/16 09:19 Mycobacterial Culture Resulted Abscess Arm Pending Physical Exam Physical Exam VITAL SIGNS: Reviewed GENERAL: A 61-year-old male, well nourished, resting on the stretcher, mild anxiety over current condition. HEENT: Atraumatic, normocephalic. PERRL at two. Mucous membranes are slightly pale, but moist. No nasal discharge. NECK: Supple. Trachea is midline. SKIN: Dressing on one area CARDIOVASCULAR: Regular rate and rhythm. No murmurs, rubs or gallops appreciated. No edema. Pulses are intact. RESPIRATORY: Essentially clear anteriorly and posteriorly with no wheezes, rales or rhonchi bilateral. GASTROINTESTINAL: Abdomen is soft, nontender, nondistended. Active bowel sounds in all for quadrants. MUSCULOSKELETAL: Good range of motion no swelling. NEUROLOGIC: He is alert, oriented a fairly good historian. Normal speech. PSYCHIATRIC: Affect and mood is appropriate with some mild anxiety noted. A/P Assessment and Plan Cellulitis in LUE with evidence of superficial abscess and myositis on MRI Irrigation and debridement of left proximal forearm abscess 09/11, appreciate ortho input Culture reports seen Labs reviewed Hemoglobin normal, chemistry levels normal, monitor any needs Encourage diet and by mouth fluids Appreciate ID input continue with abx Wound culture + MRSA Contact isolation DC on by mouth Levaquin Lovenox for DVT prophylaxis Resume Oxycodone and Morphine IR, Change Morphine to PRN for breakthrough Plan dc today D/W RN Discussed with patient in detail about wound care and follow-up Discussed With: Family (patient), Other (Dr. Mercer, pt. seen on his behalf) Andrea Mercer MD Sep 15, 2016 12:01
[2016-09-15 12:18] VITALS: O2SAT 93
--- NOTE | 2016-09-15 13:13 | HHI.IDPN ---
Subjective Subjective Remarks Notes reviewed Temps ok Doing well Anxious to go home Cleared by surgery C/S MRSA Pain under control Antibiotics Vancomycin Lines PIV Past Medical History Hyperlipidemia Degenerative disk disease Hypertension ETOH abuse Cardiovascular disease Back pain Chronic narcotic dependence Past Surgical History Previous cardiac catheterization and Cardiac stents Cholecystectomy Back surgery Allergies: Coded Allergies: *MDRO Multi-Drug Resistant Organism (Verified Adverse Reaction, Unknown, MRSA, 09/15/16) MRSA (arm) - 09/11/16 Objective . Vital Signs Date Time Temp Pulse Resp B/P Pulse Ox O2 Delivery O2 Flow Rate FiO2 09/15/16 12:18 93 21 09/15/16 08:00 97.7 75 19 143/85 96 09/15/16 04:52 96.7 74 20 133/76 96 09/15/16 00:00 96.4 80 20 124/74 96 09/14/16 20:37 96.9 75 20 122/69 95 09/14/16 18:26 96 21 09/14/16 16:44 96.9 72 17 158/88 96 09/14/16 09/14/16 09/15/16 15:00 23:00 07:00 Intake Total 960 ml Balance 960 ml Intake Oral 960 ml # Voids 3 3 3 . Laboratory Tests Test 09/14/16 07:09 Creatinine 1.25 MG/DL Estimat Glomerular Filtration 59 ML/MIN Rate Imaging Elbow X-Ray 09/09/16 0000 Signed Impressions: Service Date/Time: Friday, September 09, 2016 03:21 - CONCLUSION: 1. There is no evidence of acute fracture. No joint effusion is seen Rui Mora MD Elbow MRI 09/09/16 0000 Signed Impressions: Service Date/Time: Friday, September 09, 2016 11:12 - CONCLUSION: Small superficial antecubital fossa abscess with cellulitic changes and mild myositis. Domenico Burnham MD Physical Exam GENERAL: awake and alert, not in respiratory distress. SKIN: Warm and dry, no generalized rash HEENT: [place] conjunctivae, no petechia or hemorrhage. No scleral icterus. Moist oral mucosa, no oral thrush. NECK: Supple, nontender, no meningeal signs. CARDIOVASCULAR: Regular rate and rhythm without murmurs, gallops, or rubs. RESPIRATORY: Clear to auscultation. Breath sounds equal bilaterally. No wheezes , rales, or rhonchi. GASTROINTESTINAL: Abdomen soft, non-tender, nondistended. Bowel sounds are present and normoactive. MUSCULOSKELETAL: Extremities without clubbing, cyanosis, or edema in both LE and in his RUE. No calf tenderness. LUE - incision is dry, still with an area of swelling induration. Area of redness much improved. Good ROM NEUROLOGICAL: Non-focal PSYCH: Calm and cooperative LINE: PIV with no evidence of infection Assessment & Plan Remarks IMPRESSION Cellulitis in LUE with evidence of superficial abscess and myositis on MRI - S/P I and D - C/S MRSA Known CAD Chronic pain, and on narcotics Remote hx IVDU Hx ETOH abuse RECOMMENDATION Give 21 more days of oral Abx Give Levaquin po Patient instructed to take probiotic while on oral Abx OK for D/C from ID standpoint Kaitlin Echeverria MD Sep 15, 2016 13:13
[2016-09-15] MEDS ORDERED: LEVOFLOXACIN 500 MG TAB PO SCH (13:15)
--- NOTE | 2016-09-15 18:17 | HHI.DS ---
Discharge Summary Admission Date Sep 09, 2016 at 04:55 Discharge Date: Sep 15, 2016 Admitting Diagnosis Cellulitis LUE Procedures surgery, I&D Brief History This was a pleasant 61-year-old male who according to the record and the patient was drinking a large amount of alcohol approximately three to four days ago. The patient lost consciousness and was unaware of any injury or falls. The patient awoke the next morning complaining of some erythema and pain with swelling around his left elbow. The pain and symptoms have continued to evolve over the past three days before admission to the point that it is very painful to move in any direction pain. The patient said the pain was now constant and as stated he was unaware of what caused the swelling and induration. According to the record, the patient had a history of IV drug use, but has not used anything in the past 10 years. He did have a history of heart disease as well as hepatitis C and other comorbidities. The patient currently was a tobacco user. The patient did complain of some coughing at random. He stated that he took his medications yesterday morning before admission and took them as prescribed. He was alert, responds to verbal stimuli, mild anxiety noted. The patient denied any headache. Denied any fever, no nausea, vomiting and was a fairly good historian. CBC/BMP: 09/14/16 0709 Significant Findings Laboratory Tests Test 09/13/16 09/14/16 05:50 07:09 Vancomycin Level Trough 18.1 MCG/ML (5.0-10.0) Estimat Glomerular Filtration 59 ML/MIN (>89) Rate Imaging Last Impressions Elbow X-Ray 09/09/16 0000 Signed Impressions: Service Date/Time: Friday, September 09, 2016 03:21 - CONCLUSION: 1. There is no evidence of acute fracture. No joint effusion is seen Rui Mora MD Elbow MRI 09/09/16 0000 Signed Impressions: Service Date/Time: Friday, September 09, 2016 11:12 - CONCLUSION: Small superficial antecubital fossa abscess with cellulitic changes and mild myositis. Domenico Burnham MD PE at Discharge GENERAL: A 61-year-old male, well nourished, resting on the stretcher, mild anxiety over current condition. HEENT: Atraumatic, normocephalic. PERRL at two. Mucous membranes were slightly pale, but moist. No nasal discharge. NECK: Supple. Trachea was midline. SKIN: Dressing on one area CARDIOVASCULAR: Regular rate and rhythm. No murmurs, rubs or gallops appreciated. No edema. Pulses are intact. RESPIRATORY: Essentially clear anteriorly and posteriorly with no wheezes, rales or rhonchi bilateral. GASTROINTESTINAL: Abdomen was soft, nontender, nondistended. Active bowel sounds in all for quadrants. MUSCULOSKELETAL: Good range of motion no swelling. NEUROLOGIC: He was alert, oriented a fairly good historian. Normal speech. PSYCHIATRIC: Affect and mood is appropriate with some mild anxiety noted. Hospital Course These are the diagnosis used to treat this patient for his plan of care. 1) Cellulitis of left arm (2) Cellulitis of left elbow (3) CAD (coronary artery disease) (4) HTN (hypertension) (5) Chronic pain Cellulitis in LUE with evidence of superficial abscess and myositis on MRI on admission. Irrigation and debridement of left proximal forearm abscess was performed on , appreciate ortho input in consult for this patient Culture reports noted and treated,MRSA Labs reviewed, normal trends Hemoglobin normal, chemistry levels normal, monitor any needs Encourage diet and by mouth fluids Appreciate ID input continue with abx IV during hospital stay, vancomycin. Labs were monitored for his blood levels. Wound culture + MRSA Contact isolation due to MRSA throughout hospital stay DC on by mouth Levaquin on day of discharge Lovenox for DVT prophylaxis Resume Oxycodone and Morphine IR, for pain management. Change Morphine to PRN for breakthrough Plan dc today, after assessment. Patient can be managed at home with by mouth antibiotics now and home health Patient had a history of coronary artery disease, which was monitored and treated with medical management. No acute chest pain or shortness of breath during this hospital stay. Patient also had a history of hypertension. Home meds were reconciled and patient's blood pressure and other vital signs was monitored every 4 hours. No acute issues seen. Pt Condition on Discharge: Good Discharge Disposition: Disch w/ Home Health Serv Discharge Instructions DIET: Follow Instructions for: Heart Healthy Diet Activities you can perform: Weight Bearing as Sam Follow up Referrals: Orthopedics - 2 Weeks @ [facility] with Serafin Abernathy MD PCP Follow-up - 1 Week New Medications: Hydrocodone-Acetaminophen ([place]) 7.5-325 mg Tab 1 TAB PO Q4H PRN PAIN #60 Ref 0 TAB Levofloxacin (Levaquin) 500 Mg Tab 500 MG PO DAILY Infection #21 Ref 0 TAB Continued Medications: Aspirin (Aspirin) 81 Mg Tabdr 81 MG PO DAILY TAB Carvedilol (Carvedilol) 6.25 Mg Tab 6.25 MG PO BID #60 Ref 0 TAB Cyclobenzaprine (Flexeril) 10 Mg Tab 10 MG PO TID Muscle Spasm #90 Ref 0 TAB Digoxin (Digoxin) 0.25 Mg Tab 0.25 MG PO DAILY Regulate Heart Beat #30 Ref 0 TAB Gabapentin (Gabapentin) 600 Mg Tab 600 MG PO BID #60 Ref 0 TAB Hydrocodone-Acetaminophen (Hydrocodone-Acetaminophen) 7.5-300 Mg Tab 1 TAB PO Q4H PRN PAIN Ref 0 TAB Lisinopril (Lisinopril) 20 Mg Tab 20 MG PO DAILY #30 Ref 0 TAB Morphine ER (Morphine ER) 15 Mg Tab 15 MG PO BID Pain Management Ref 0 TAB Niacin (Niacin) 500 Mg Tab 500 MG PO DAILY Cholesterol Management #30 Ref 0 TAB Nitroglycerin SL (Nitroglycerin SL) 0.4 Mg Subl 0.4 MG SL DIRECTED ONE TABLET UNDER THE TONGUE NEEDED FOR CHEST PAIN, MAY REPEAT EVERY FIVE MINUTES FOR A TOTAL OF 3 DOSES OR CALL 911 IF NO RELIEF PRN CHEST PAIN #100 Ref 0 TAB.SL Omeprazole (Omeprazole) 20 Mg Tab 20 MG PO DAILY #30 Ref 0 TAB Oxycodone (Oxycodone) 30 Mg Tab 30 MG PO Q4-6H PRN PAIN Ref 0 TAB Simvastatin (Simvastatin) 40 Mg Tab 40 MG PO HS Cholesterol Management #30 Ref 0 TAB Tramadol (Tramadol) 50 Mg Tab 50 MG PO Q6H PRN PAIN Ref 0 TAB Etelvina Valdez Sep 15, 2016 18:17
[2016-09-17] MEDS ORDERED: PHARMACY ORDERED LAB XX ONE (05:45)
== END 2016-09-15 15:43 | disposition home health service (06) | DRG 580 ==
LOC: NEPE 23:39 → OBSVTOIN 09-09 04:55 → NEDA 09-09 04:55 → NEPFCDU 09-09 12:42 → N05B 09-11 10:02
PROVIDERS: ADMIT Specialist; ATTEND Specialist
PROC: 0JDH0ZZ Extraction of Left Lower Arm Subcutaneous Tissue and Fascia, Open Approach (ICD-10-PCS; principal; 2016-09-11 08:54)
DX: L02.414 Cutaneous abscess of left upper limb (principal); E87.1 Hypo-osmolality and hyponatremia; I10 Essential (primary) hypertension; L03.114 Cellulitis of left upper limb; B95.62 Methicillin resistant Staphylococcus aureus infection as the cause of diseases classified elsewhere; I25.10 Atherosclerotic heart disease of native coronary artery without angina pectoris; E78.5 Hyperlipidemia, unspecified; Z95.5 Presence of coronary angioplasty implant and graft; F17.210 Nicotine dependence, cigarettes, uncomplicated; F10.10 Alcohol abuse, uncomplicated; E87.6 Hypokalemia; G89.29 Other chronic pain; Z79.891 Long term (current) use of opiate analgesic
CPT/HCPCS: 73080; 73223; 80048; 80053; 80202; 81001; 82565; 83605; 85025; 85027; 85610; 85652; 85730; 86140; 87015; 87040; 87070; 87102; 87116; 87205; 87206; 93005; 94150; 96365; 96367; A9579; J1100; J1170; J1580; J1650; J2250; J2270; J2370; J2405; J2543; J3010; J3370; J7030; J7040; J7050

== ENCOUNTER 2016-09-21 10:28 | Emergency (ER) | payer MEDICAID ==
[~2016-09-21] VITALS: Ht 175.3 cm; Wt 72.0 kg
[~2016-09-21 10:28] MED LIST changes: +ASPI1TAB69 PO; -ASPI81 PO; -CYCL1PAK PO; +CYCL1TAB29 PO; -ENAL5TAB PO; +GABA600T PO; +HYDR-2376 PO; +HYDR-3288 PO; +LEVA500T PO; +LISI-515 PO; -LORT7.5T3 PO; +MORP1TAB24 PO; -NAPR550 PO; -NEUR600T PO; -NIAC500 PO; +NIAC500T5 PO; -NITR.4 SL; +NITR1SUB3 SL; +OXYC30TA PO; -SPIR25TA PO
[2016-09-21 10:30] VITALS: BP 166/97; PULSE 82; RESP 20; TEMP 97.8; O2SAT 94
[2016-09-21 10:48] VITALS: BP 141/90; PULSE 81; RESP 17; O2SAT 98
--- NOTE | 2016-09-21 11:34 | PD ---
HPI Chief Complaint: Wound/Suture/Staple Re-Check Time Seen by Provider: 10:43 Travel History International Travel<30 days: No Contact w/Intl Traveler<30days: No Traveled to known affect area: No History of Present Illness HPI This is a 61-year-old male presents emergency department for evaluation of wound dehiscence of his left before meals. Patient per records was recently admitted to the hospital on September 09 and May 11 and incision and drainage of an abscess in cellulitis of the left upper extremity. Since discharge from the hospital 4 days ago patient states there is a small area of the wound is started to open up. There is no discharge from the wound. Patient states cellulitis getting better he's been taking his antibiotics. He has not yet followed up with Dr. brice who did his surgery. Denies any fever denies any nausea vomiting. Coded by his ex- were also performed. The patient has been hallucinating and hearing voices which is new for him. He denies any suicidal homicidal ideation does admit to hallucinations. Patient does admit to cocaine yesterday.He has seen a psychiatrist before and this was retaken trazodone but hasn't taken the meds because he states that it makes her very Groggy next morning. PFSH Past Medical History Hx Anticoagulant Therapy: Yes (PLAVIX) Asthma: No Autoimmune Disease: No Blood Disorders: No Anxiety: No Depression: Yes Heart Rhythm Problems: No Cancer: No Cardiovascular Problems: Yes (X3 [place] WITH STENTS) High Cholesterol: No Chemotherapy: No Chest Pain: No Congestive Heart Failure: No COPD: No Diabetes: No Diminished Hearing: No Endocrine: No Genitourinary: No Hiatal Hernia: Yes Herniated Disk: Yes (2 DISKS ) Hypertension: Yes Immune Disorder: No Musculoskeletal: Yes Neurologic: No Psychiatric: No Reproductive: Yes Respiratory: No Radiation Therapy: No Sleep Apnea: No Thyroid Disease: No Tetanus Vaccination: Unknown Influenza Vaccination: No ?: Not Past Surgical History Abdominal Surgery: Yes (gall bladder and hernia) Cardiac Surgery: Yes (2 stents) Cholecystectomy: Yes Other Surgery: Yes (BACK- HERNIA) Social History Alcohol Use: No Tobacco Use: Yes (1 PPD) Substance Use: Yes (COCAINE- YESTERDAY) Allergies-Medications (Allergen,Severity, Reaction): Coded Allergies: *MDRO Multi-Drug Resistant Organism (Verified Adverse Reaction, Unknown, MRSA, 09/15/16) MRSA (arm) - 09/11/16 Reported Meds & Prescriptions Reported Meds & Active Scripts Active Levaquin (Levofloxacin) 500 Mg Tab 500 Mg PO DAILY [place] (Hydrocodone-Acetaminophen) 7.5-325 mg Tab 1 Tab PO Q4H PRN Reported Oxycodone (Oxycodone HCl) 30 Mg Tab 30 Mg PO Q4-6H PRN Morphine ER (Morphine Sulfate) 15 Mg Tab 15 Mg PO BID Lisinopril 20 Mg Tab 20 Mg PO DAILY Nitroglycerin SL (Nitroglycerin) 0.4 Mg Subl 0.4 Mg SL DIRECTED PRN ONE TABLET UNDER THE TONGUE NEEDED FOR CHEST PAIN, MAY REPEAT EVERY FIVE MINUTES FOR A TOTAL OF 3 DOSES OR CALL 911 IF NO RELIEF Niacin 500 Mg Tab 500 Mg PO DAILY Omeprazole 20 Mg Tab 20 Mg PO DAILY Simvastatin 40 Mg Tab 40 Mg PO HS Gabapentin 600 Mg Tab 600 Mg PO BID Digoxin 0.25 Mg Tab 0.25 Mg PO DAILY Flexeril (Cyclobenzaprine HCl) 10 Mg Tab 10 Mg PO TID Carvedilol 6.25 Mg Tab 6.25 Mg PO BID Aspirin 81 Mg Tabdr 81 Mg PO DAILY Review of Systems Except as stated in HPI: all other systems reviewed are Neg Physical Exam Narrative GENERAL: Well-nourished in no apparent distress SKIN: Warm and dry. There is a 6 and a meter surgical incision to the left before meals fossa running the length of the arm, the superior most aspect there is approximately 2:30 centimeter area of dehiscence. No discharge to be expressed. Really there is no cellulitis surrounding the wound at all at this time. HEAD: Atraumatic. Normocephalic. EYES: Pupils equal and round. No scleral icterus. No injection or drainage. ENT: No nasal bleeding or discharge. Mucous membranes pink and moist. NECK: Trachea midline. No JVD. CARDIOVASCULAR: Regular rate and rhythm. No murmur appreciated. RESPIRATORY: No accessory muscle use. Clear to auscultation. Breath sounds equal bilaterally. GASTROINTESTINAL: Abdomen soft, non-tender, nondistended. Hepatic and splenic margins not palpable. MUSCULOSKELETAL: No obvious deformities. No clubbing. No cyanosis. No edema. Full nontender range of motion bilateral upper shoulders in all joints and pulses motor and sensory intact distally in all 4 extremities. NEUROLOGICAL: Awake and alert. No obvious cranial nerve deficits. Motor grossly within normal limits. Normal speech. PSYCHIATRIC: Patient is alert and awake and oriented denies audiovisual hallucinations denies suicidal or homicidal ideation. Data Data Last Documented VS Vital Signs Date Time Temp Pulse Resp B/P Pulse Ox O2 Delivery O2 Flow Rate FiO2 09/21/16 10:52 77 18 09/21/16 10:48 141/90 98 Room Air 09/21/16 10:30 97.8 [facility] Medical Decision Making Medical Screen Exam Complete: Yes Emergency Medical Condition: Yes Differential Diagnosis Wound dehiscence, mild cellulitis, severe bacterial infection unlikely, psychosis. Narrative Course Patient seen and examined by me and the wound appears to be healing well with stitches still in place, minimal dehiscence. Patient was discussed with the surgeon on-call for Dr. Abernathy today. We have discussed and continue the antibiotics as well as dressing changes which she seems to be doing appropriately. On the subject of his possible psychosis the patient was discussed at length with his ex- who is here with him. I have asked her if she thinks that he is a threat to himself or gravely disabled and she does not think so at this time. Which coincides with my impression that the patient is not a threat to himself or others at this time. He is certainly not greatly disabled. He was provided a list of follow-up areas for his chronic mental issues. Discussed with him his cocaine use and recommended discontinuing that to prevent complications specifically discussed heart problems. Patient is stable for discharge at this time. Stitches will be left in place until follow-up with Dr. Abernathy phone number provided for Dr. Abernathy and instructed to call tomorrow to find out when his appointment is. Diagnosis Primary Impression: Wound dehiscence Additional Impressions: Cellulitis Qualified Code: L03.114 - Cellulitis of left upper extremity Cocaine abuse Auditory hallucination Referrals: Serafin Abernathy MD Additional Instructions: Continue antibiotics until gone, any redness worsens return to the emergency department. Return to the emergency department for any fevers. Stop using cocaine. Follow up with [facility] act. Disposition: 01 DISCHARGE HOME Condition: Stable Jd Bo MD Sep 21, 2016 11:34
== END 2016-09-21 14:23 | disposition home or self-care (01) ==
LOC: NEPA 10:30
DX: T81.30XA Disruption of wound, unspecified, initial encounter (principal); F14.10 Cocaine abuse, uncomplicated; L03.114 Cellulitis of left upper limb; R44.0 Auditory hallucinations; F17.210 Nicotine dependence, cigarettes, uncomplicated; I10 Essential (primary) hypertension; I25.2 Old myocardial infarction; F32.9 Major depressive disorder, single episode, unspecified; Z79.01 Long term (current) use of anticoagulants
CPT/HCPCS: 99281

== ENCOUNTER 2017-01-21 02:16 | Observation (INO) | payer MEDICAID ==
[~2017-01-21] VITALS: Ht 175.3 cm; Wt 73.3 kg
[2017-01-21] VITALS (15 sets, daily range): BP systolic 101–128; BP diastolic 70–84; PULSE 64–90; RESP 13–29; TEMP 97.6–98.7; O2SAT 96–98
[~2017-01-21 02:16] MED LIST changes: -HYDR-2376 PO; -TRAM50TA PO
[2017-01-21] MEDS ORDERED: SODIUM CHLORID 0.9% 500 ML INJ 500 ML IV ONE ×2 (02:30→03:30)
[2017-01-21] MEDS ORDERED: SODIUM CHLORIDE 0.9% FLUSH 10 ML FLUSH IVF PRN ×2 (02:30→05:15)
[2017-01-21] MEDS: NITROGLYCERIN 0.4 MG SL 25 TABS/BTL SL SCH ×3 (02:30→02:40)
[2017-01-21] MEDS ORDERED: ASPIRIN 81 MG CHEW TAB PO ONE (02:30)
--- NOTE | 2017-01-21 02:34 | PD ---
HPI Chief Complaint: chest pain Time Seen by Provider: 02:29 Travel History International Travel<30 days: No Contact w/Intl Traveler<30days: No Traveled to known affect area: No History of Present Illness HPI 61-year-old male presents to the emergency department by private transportation in the care of family for evaluation of one to one and a half hours of left- sided chest pain with intermittent shortness of breath. Patient states chest pain is intermittent as well and nonradiating. No referred neck jaw back shoulder arm or abdominal pain. Patient does have history of CAD hypertension dyslipidemia and admits to cocaine use. Patient also admits to ongoing tobacco use. Patient takes Plavix and aspirin daily. Patient had access to supplemental nitroglycerin but did not take one because it gives him a headache. Patient does not report any nausea or vomiting. No report of diaphoresis near-syncope or syncope. Patient reports prior to arrival to the emergency department after onset of chest pain patient took an additional dose of carvedilol, aspirin 162 mg, morphine, Valium, and oxycodone. Pain was 6/10 in intensity on arrival but now 0/10 in intensity patient was shortness of breath but denies short of breath at this time. PFSH Past Medical History Narrative Medical [place] 3 with stents; aspirin use, Plavix use, hypertension dyslipidemia tobaccoism degenerative disc disease MRSA abscess and cellulitis w surgical drainage and debridement 08/2016 due to IVDA; IV cocaine use; nursing notes reviewed Hx Anticoagulant Therapy: Yes (PLAVIX) Asthma: No Autoimmune Disease: No Blood Disorders: No Anxiety: No Depression: Yes Heart Rhythm Problems: No Cancer: No Cardiovascular Problems: Yes (X3 [place] WITH STENTS) High Cholesterol: No Chemotherapy: No Chest Pain: No Congestive Heart Failure: No COPD: No Diabetes: No Diminished Hearing: No Endocrine: No Genitourinary: No Hiatal Hernia: Yes Herniated Disk: Yes (2 DISKS ) Hypertension: Yes Immune Disorder: No Musculoskeletal: Yes Neurologic: No Psychiatric: No Reproductive: Yes Respiratory: No Radiation Therapy: No Sleep Apnea: No Thyroid Disease: No Past Surgical History Abdominal Surgery: Yes (gall bladder and hernia) Cardiac Surgery: Yes (2 stents) Cholecystectomy: Yes Other Surgery: Yes (BACK- HERNIA) Social History Alcohol Use: No Tobacco Use: Yes (1 PPD) Substance Use: Yes (COCAINE- YESTERDAY) Allergies-Medications (Allergen,Severity, Reaction): Coded Allergies: *MDRO Multi-Drug Resistant Organism (Verified Adverse Reaction, Unknown, MRSA, 01/21/17) MRSA (arm) - 09/11/16 Reported Meds & Prescriptions Reported Meds & Active Scripts Active Reported Atorvastatin (Atorvastatin Calcium) 20 Mg Tab 20 Mg PO HS Clopidogrel (Clopidogrel Bisulfate) 75 Mg Tab 75 Mg PO DAILY Diazepam 5 Mg Tab 5 Mg PO BID PRN Aspirin 81 Mg Chew 81 Mg CHEW DAILY Oxycodone (Oxycodone HCl) 30 Mg Tab 30 Mg PO Q4-6H PRN Morphine ER (Morphine Sulfate) 15 Mg Tab 15 Mg PO BID Lisinopril 20 Mg Tab 20 Mg PO DAILY Nitroglycerin SL (Nitroglycerin) 0.4 Mg Subl 0.4 Mg SL DIRECTED PRN ONE TABLET UNDER THE TONGUE NEEDED FOR CHEST PAIN, MAY REPEAT EVERY FIVE MINUTES FOR A TOTAL OF 3 DOSES OR CALL 911 IF NO RELIEF Omeprazole 20 Mg Tab 20 Mg PO DAILY Simvastatin 40 Mg Tab 40 Mg PO HS Gabapentin 600 Mg Tab 600 Mg PO BID Flexeril (Cyclobenzaprine HCl) 10 Mg Tab 10 Mg PO TID Carvedilol 6.25 Mg Tab 6.25 Mg PO BID Review of Systems Except as stated in HPI: all other systems reviewed are Neg General / Constitutional: No: Fever, Chills HENT: No: Congestion Cardiovascular: Positive: Chest Pain or Discomfort Respiratory: Positive: Shortness of Breath Gastrointestinal: No: Nausea, Vomiting Genitourinary: No: Flank Pain Musculoskeletal: No: Myalgias, Arthralgias Skin: Positive Rash (bilateral UE at new tatoo sites) Neurologic: No: Weakness, Dizziness, Syncope Psychiatric: Positive: Anxiety, Substance Abuse Hematologic/Lymphatic: No: Easy Bruising Physical Exam Narrative GENERAL: Well-developed well-nourished male in no respiratory distress appears to be in discomfort SKIN: Warm and dry. HEAD: Normocephalic. EYES: No scleral icterus. No injection or drainage. NECK: Supple, trachea midline. No JVD or lymphadenopathy. CARDIOVASCULAR: Regular rate and rhythm without murmurs, gallops, or rubs. RESPIRATORY: Breath sounds equal bilaterally. No accessory muscle use. GASTROINTESTINAL: Abdomen soft, non-tender, nondistended. MUSCULOSKELETAL: No cyanosis, or edema. Radial and dorsalis pedis pulses bilaterally are 2+ to palpation BACK: Nontender without obvious deformity. No CVA tenderness. Data Data Last Documented VS Vital Signs Date Time Temp Pulse Resp B/P Pulse Ox O2 Delivery O2 Flow Rate FiO2 01/21/17 03:25 80 16 101/70 96 Nasal Cannula 2 01/21/17 02:30 98.3 Orders Electrocardiogram (01/21/17 02:29) Basic Metabolic Panel (Bmp) (01/21/17 02:29) Ckmb (Isoenzyme) Profile (01/21/17 02:29) Complete Blood Count With Diff (01/21/17 02:29) Magnesium (Mg) (01/21/17 02:29) Prothrombin Time / Inr (Pt) (01/21/17 02:29) Act Partial Throm Time (Ptt) (01/21/17 02:29) Troponin I (01/21/17 02:29) Chest, Single Ap (01/21/17 02:29) Ecg Monitoring (01/21/17 02:29) Bilateral Bp Monitoring (01/21/17 02:29) Iv Access Insert/Monitor (01/21/17 02:29) Oximetry (01/21/17 02:29) Oxygen Administration (01/21/17 02:29) Aspirin Chew (Aspirin Chew) (01/21/17 02:30) Sodium Chloride 0.9% Flush (Ns Flush) (01/21/17 02:30) Nitroglycerin Sl (Nitrostat Sl) (01/21/17 02:30) Sodium Chlorid 0.9% 500 Ml Inj (Ns 500 M (01/21/17 02:30) Drug Screen, Random Urine (01/21/17 02:29) Alcohol (Ethanol) (01/21/17 02:29) Sodium Chlor 0.9% 1000 Ml Inj (Ns 1000 M (01/21/17 02:45) Digoxin (01/21/17 02:29) Lactic Acid (01/21/17 02:50) Blood Culture (01/21/17 02:50) Vancomycin Inj (Vancomycin Inj) (01/21/17 03:00) Piperacil-Tazo 4.5 Gm Premix (Zosyn 4.5 (01/21/17 03:00) CKMB (01/21/17 02:30) CKMB% (01/21/17 02:30) Sodium Chlorid 0.9% 500 Ml Inj (Ns 500 M (01/21/17 03:30) Labs Laboratory Tests Test 01/21/17 01/21/17 02:30 02:50 White Blood Count 7.6 TH/MM3 Red Blood Count 4.72 MIL/MM3 Hemoglobin 14.2 GM/DL Hematocrit 41.9 % Mean Corpuscular Volume 88.8 FL Mean Corpuscular Hemoglobin 30.1 PG Mean Corpuscular Hemoglobin 33.9 % Concent Red Cell Distribution Width 12.6 % Platelet Count 162 TH/MM3 Mean Platelet Volume 8.1 FL Neutrophils (%) (Auto) 72.7 % Lymphocytes (%) (Auto) 18.1 % Monocytes (%) (Auto) 6.9 % Eosinophils (%) (Auto) 1.9 % Basophils (%) (Auto) 0.4 % Neutrophils # (Auto) 5.6 TH/MM3 Lymphocytes # (Auto) 1.4 TH/MM3 Monocytes # (Auto) 0.5 TH/MM3 Eosinophils # (Auto) 0.1 TH/MM3 Basophils # (Auto) 0.0 TH/MM3 CBC Comment DIFF FINAL Differential Comment Prothrombin Time 10.6 SEC Prothromb Time International 1.0 RATIO Ratio Activated Partial 30.5 SEC Thromboplast Time Sodium Level 139 MEQ/L Potassium Level 3.7 MEQ/L Chloride Level 103 MEQ/L Carbon Dioxide Level 29.0 MEQ/L Anion Gap 7 MEQ/L Blood Urea Nitrogen 19 MG/DL Creatinine 1.30 MG/DL Estimat Glomerular Filtration 57 ML/MIN Rate Random Glucose 124 MG/DL Calcium Level 8.6 MG/DL Magnesium Level 2.2 MG/DL Total Creatine Kinase 147 U/L Creatine Kinase MB 1.3 NG/ML Troponin I LESS THAN 0.02 NG/ML Digoxin Level LESS THAN 0.1 NG/ML Ethyl Alcohol Level LESS THAN 3 MG/DL Lactic Acid Level 1.7 mmol/L [facility] Medical Decision Making Medical Screen Exam Complete: Yes Emergency Medical Condition: Yes Medical Record Reviewed: Yes Interpretation(s) EKG normal sinus rhythm with QS anteroseptally and mild ST segment elevation in V2 CBC & BMP Diagram 01/21/17 02:30 Vital Signs Date Time Temp Pulse Resp B/P Pulse Ox O2 Delivery O2 Flow Rate FiO2 01/21/17 02:45 105/72 110/70 01/21/17 02:30 98.3 90 24 112/78 96 01/21/17 02:30 96 Nasal Cannula 2 01/21/17 02:30 96 Nasal Cannula 2 ck: 147, not elevated; troponin I: less than 0.02, not elevated serum alcohol: less than 3, not elevated Differential Diagnosis Chest pain, ACS, myocardial infarction, cocaine abuse Narrative Course Patient placed on cardiac tech IV access obtained specimens collected and sent for resulting patient administered aspirin 162 mg by mouth and sublingual nitroglycerin along with fluid bolus of normal saline 500 cc an maintenance normal saline at 125 cc per hour. Bilateral antecubital fossae show evidence of new tattoos with right antecubital fossa show any evidence of induration erythema and patient complains of tenderness at the site with complaint of chills; additional IV access obtained proximal to the site blood cultures and lactic acid specimens collected and patient presumptively administered vancomycin and Zosyn. @ 3:20 AM patient sleeping upon awakening the patient c/o pain but unable to quantitate and falls back to sleep; O2 sat on 2 L/m 95-97% BP 101/76 first set of cardiac enzymes not elevated, ck:147, troponin Iess than 0.02, not elevated @ 3:40 AM denies CP; unable to provide UDS urine specimen Diagnosis Primary Impression: Chest pain Qualified Code: R07.2 - Precordial pain Additional Impressions: Cocaine abuse Cellulitis of right arm Admitting Information Admitting Physician Requests: Admit Jeanette Corona MD Jan 21, 2017 02:34
[2017-01-21] MEDS ORDERED: ASPI81CH CHEW (02:39)
[2017-01-21] MEDS ORDERED: CLOP75TA PO (02:39)
[2017-01-21] MEDS ORDERED: ATOR20TA15 PO (02:39)
[2017-01-21] MEDS ORDERED: DIAZ5TAB PO (02:39)
[2017-01-21 02:41] LABS: AUTOMATED NEUTROPHIL # 5.6 TH/MM3 (1.8-7.7); BASOPHIL % 0.4 % (0.0-2.0); EOSINOPHIL # 0.1 TH/MM3 (0-0.4); EOSINOPHIL % 1.9 % (0.0-4.0); HEMATOCRIT 41.9 % (39.0-51.0); HEMO FLAGS DIFF FINAL; LYMPH % 18.1 % (9.0-44.0); LYMPHOCYTE # 1.4 TH/MM3 (1.0-4.8); MEAN CELL VOLUME 88.8 FL (80.0-100.0); MEAN CORPUSCULAR HEMOGLOBIN 30.1 PG (27.0-34.0); MEAN CORPUSCULAR HGB CONC 33.9 % (32.0-36.0); MONO % 6.9 % (0.0-8.0); NEUT % 72.7 % (16.0-70.0); PLATELET COUNT 162 TH/MM3 (150-450); RED BLOOD COUNT 4.72 MIL/MM3 (4.50-5.90); RED CELL DISTRIBUTION WIDTH 12.6 % (11.6-17.2); WHITE BLOOD COUNT 7.6 TH/MM3 (4.0-11.0)
[2017-01-21] MEDS ORDERED: SODIUM CHLOR 0.9% 1000 ML INJ 1,000 ML IV SCH (02:45)
[2017-01-21 02:53] LABS: CHLORIDE 103 MEQ/L (98-107); POTASSIUM 3.7 MEQ/L (3.5-5.1); SODIUM (NA) 139 MEQ/L (136-145)
[2017-01-21 02:55] LABS: ANION GAP 7 MEQ/L (5-15); BLOOD UREA NITROGEN 19 MG/DL (7-18); MAGNESIUM 2.2 MG/DL (1.5-2.5)
[2017-01-21 02:58] LABS: APTT (PATIENT) 30.5 SEC (24.3-30.1); GLOMERULAR FILTRATION RATE 57 ML/MIN (>89); PROTHROMBIN TIME - PATIENT 10.6 SEC (9.8-11.6)
[2017-01-21] MEDS ORDERED: PIPERACIL-TAZO 4.5 GM PREMIX 100 ML IV ONE (03:00)
[2017-01-21] MEDS ORDERED: VANCOMYCIN INJ 1,250 MG in SODIUM CHLOR 0.9% 250 ML INJ 250 ML IV ONE (03:00)
[2017-01-21 03:01] LABS: CREATINE KINASE 147 U/L (39-308)
[2017-01-21 03:14] LABS: CKMB 1.3 NG/ML (0.5-3.6)
[2017-01-21 03:37] LABS: DIGOXIN LESS THAN 0.1 NG/ML (0.8-2.0)
--- NOTE | 2017-01-21 03:44 | RADRPT ---
EXAM DATE/TIME: 01/21/2017 02:33 [facility] COMPARISON: No previous studies available for comparison. INDICATIONS : Chest pain. MEDICAL HISTORY : None. SURGICAL HISTORY : None. ENCOUNTER: Initial ACUITY: 1 day PAIN SCORE: 5/10 LOCATION: Bilateral chest FINDINGS: A single view of the chest demonstrates the lungs to be symmetrically aerated without evidence of mas s, infiltrate or effusion. The cardiomediastinal contours are unremarkable. Osseous structures are intact. CONCLUSION: The lungs are clear. Man Madden MD on January 21, 2017 at 3:43 Board Certified Radiologist. This report was verified electronically.
[2017-01-21] MEDS ORDERED: SODIUM CHLOR 0.9% 1000 ML INJ 1,000 ML IV ONE (04:15)
[2017-01-21] MEDS: SODIUM CHLOR 0.9% 1000 ML INJ 1,000 ML IV SCH ×2 (05:48→15:48)
[2017-01-21] MEDS ORDERED: NITROGLYCERIN 0.4 MG SL 25 TABS/BTL SL PRN ×2 (06:00→10:00)
[2017-01-21] MEDS ORDERED: ACETAMINOPHEN 500 MG CPLT PO PRN (06:00)
[2017-01-21] MEDS ORDERED: ALPRAZolam 0.25 MG TAB PO PRN (06:00)
[2017-01-21] MEDS: NITROGLYCERIN 2% OINT 1 GM PACKET TOP SCH ×3 (06:00→18:00)
[2017-01-21 06:33] LABS: AMPHETAMINE, URINE POS (NEG); BARBITURATES, URINE NEG (NEG); COCAINE, URINE POS (NEG)
[2017-01-21] MEDS: HEPARIN SODIUM - SQ 10,000 UNITS/ML VIAL SQ SCH ×2 (06:33→18:05)
[2017-01-21] MEDS ORDERED: ASPIRIN 81 MG CHEW TAB PO SCH (09:00)
[2017-01-21] MEDS ORDERED: FAMOTIDINE 20 MG TAB PO SCH (09:00)
[2017-01-21] MEDS ORDERED: SODIUM CHLORIDE 0.9% FLUSH 10 ML FLUSH IV FLUSH SCH ×2 (09:00)
--- NOTE | 2017-01-21 09:19 | MH ---
cc: LAURA REMY MD DATE OF ADMISSION 01/21/2017 CHIEF COMPLAINT Chest pain HISTORY OF PRESENT ILLNESS This is a 61-year-old male with past medical-surgical history significant for coronary artery disease, hypertension, hyperlipidemia, tobacco abuse, degenerative disk disease, MRSA abscess and cellulitis with surgical drainage and debridement on August 2016 due to IV drug abuse. IV cocaine use recently used yesterday, history of cholecystectomy and hernia repair. Smokes one pack a day, abuses cocaine. He came to the ER at [facility] complaining of chest pain. The patient was brought in by private vehicle in the care of his family for evaluation of 1-1/2 hour of left-sided chest pain with intermittent shortness of breath. The patient states the pain was intermittent as well as non-radiating to neck, jaw, back, shoulder, arm or abdominal pain. The patient does have a history of coronary artery disease and he admit to abusing cocaine and also he is a chronic smoker. He is on Plavix and aspirin. Denies any nausea or vomiting. Denies any syncope, near-syncope, or syncope. Other than that, nothing significant. When I examined the patient, the patient's pain is much improved. PAST MEDICAL AND SURGICAL HISTORY As dictated above. SOCIAL HISTORY He smoked one pack a day for many years, abused, cocaine and marijuana with a recent use yesterday. Denies any alcohol abuse. Lives at home alone. He does not work. FAMILY HISTORY Nothing significant. ALLERGIES NO KNOWN DRUG ALLERGIES. MEDICATIONS Includes for: 1. Pravastatin 20 mg p.o. daily 2. Plavix 75 mg p.o. daily 3. Diazepam 5 mg p.o. daily 4. Aspirin 81 mg p.o. daily 5. Roxicodone 30 mg p.o. q.6 h. 6. Morphine ER 50 mg twice a day 7. Lisinopril 20 mg p.o. daily 8. Nitroglycerin 0.4 mg sublingual p.r.n. chest pain. 9. Simvastatin 40 mg daily 10. Gabapentin 600 mg twice a day 11. Flexeril 10 mg p.o. t.i.d. 12. Coreg 6.25 mg twice a day 13. Omeprazole 20 mg p.o. daily REVIEW OF SYSTEMS Positive for chest pain, all other review of systems are negative. PHYSICAL EXAMINATION This is a 61-year male laying on the bed not in acute distress. VITAL SIGNS: Temperature 98.1, heart rate 68, respiration 23, blood pressure 122/84, O2 saturation 98% room air. HEENT: Normocephalic, atraumatic. EOMI. PERRL. Oral mucosa moist. NECK: Supple. No visible thyromegaly or neck mass. Trachea is central. CARDIOVASCULAR: Regular rate and rhythm. RESPIRATORY: Clear to auscultation bilaterally. ABDOMEN: Soft. Nontender. Bowel sounds. EXTREMITIES: No cyanosis or clubbing. Full range of motion of all extremities. NEUROLOGIC: Awake, alert, oriented x4. No focal deficits. SKIN: Has tattoos. PSYCH: The patient is cooperative. LABORATORY DATA Include CBC totally unremarkable. BMP totally unremarkable except for BUN 99, GFR 57 low, glucose 124 high, lactic acid 1.7, troponin-I less than 0.02. PT 10.6, INR 0.0. PTT 30.5. Urine tox screen positive for opiates, amphetamines, benzodiazepines, cocaine. Blood culture done times two negative so far. Chest x-ray was done shows lungs are clear. EKG done shows an old QS wave in lead third AVF and V1-V3, most likely old inferior wall and old anterior wall infarction with a sinus rhythm. ASSESSMENT/PLAN 1. This is a 61-year-old male who came to the ER diagnosed with chest pain, rule out acute coronary syndrome. Cardiogram x1 within normal limit. EKG shows old QS wave in inferior and anterior leads most likely old inferior and anterior wall infarction. The patient abused cocaine, advised to quit that. The patient is on aspirin and Plavix. Cardiology consulted. Further recommendation per cardiology. 2. History of coronary artery disease. Continue home medication. 3. History of hyperlipidemia. Continue home medication. 4. His history of anxiety. Continue home medication. 5. History of arthritis. Continue home medication. 6. History of gastroesophageal reflux disease Famotidine 20 mg twice a day. 7. Neuropathy. Continue with Neurontin 600 mg twice a day. 8. DVT prophylaxis, heparin 5000 units subcutaneous twice a day. 9. GI prophylaxis, Famotidine 20 mg p.o. b.i.d. 10. Check CBC, CMP in the morning. 11. We are going to manage the patient on a daily basis and make recommendations on a daily basis. MD KACEY Shanks /8:43 AM /9:08 AM SKY
[2017-01-21] MEDS ORDERED: DIAZEPAM 5 MG TAB PO PRN (10:00)
[2017-01-21] MEDS ORDERED: MORPHINE SULFATE 15 MG CONTROLLED RELEASE TAB PO SCH (10:00)
[2017-01-21] MEDS ORDERED: PANTOPRAZOLE SOD 20 MG DELAYED RELEASE TAB PO SCH (10:00)
[2017-01-21] MEDS ORDERED: CARVEDILOL 6.25 MG TAB PO SCH (10:00)
[2017-01-21] MEDS ORDERED: CLOPIDOGREL 75 MG TAB PO SCH (10:00)
[2017-01-21] MEDS ORDERED: LISINOPRIL 20 MG TAB PO SCH (10:00)
[2017-01-21] MEDS ORDERED: ASPIRIN 81 MG CHEW TAB CHEW SCH (10:00)
[2017-01-21] MEDS ORDERED: GABAPENTIN 300 MG CAP PO SCH (11:00)
[2017-01-21] MEDS: CYCLOBENZAPRINE HCL 10 MG TAB PO SCH ×2 (14:22→18:05)
[2017-01-21] MEDS ORDERED: DOXY100C PO (19:51)
[2017-01-21] MEDS ORDERED: MUPI2%T TOPICAL (19:51)
--- NOTE | 2017-01-21 20:01 | MB ---
cc: HOWARD GARCIA MD DATE OF CONSULTATION 01/21/17 REASON FOR CONSULTATION Chest pain. HISTORY OF PRESENT ILLNESS Mr. Castorena is a 61-year-old man who has a reported history of CAD, hypertension and hyperlipidemia. He has apparently had some recent MRSA abscess and cellulitis with subsequent drainage and debridement. The patient reports he came to the emergency room for left-sided chest discomfort and intermittent shortness of breath. He does not recall much in the way of events or is able to give any real history. He is currently requesting to be discharged. He reports he is pain free. The patient reports that he has been asymptomatic with walking. PAST MEDICAL HISTORY Per the record 1. Hypertension, 2. Hyperlipidemia, 3. CAD with prior stent placement, 4. Myocardial infarction. 5. IV drug use including cocaine 6. Herniated disk PAST SURGICAL HISTORY 1. Back surgery, 2. Cholecystectomy 3. Cardiac surgery. MEDICATIONS Current medications per the record. REVIEW OF SYSTEMS The patient is not cooperative for this. SOCIAL HISTORY The patient per the record does smoke and did cocaine yesterday. PHYSICAL EXAMINATION VITAL SIGNS: 98.1, 66, 121/82. GENERAL: He is a thin man who is in no apparent distress. NECK: His neck is free from JVD. LUNGS: The lungs are bilaterally clear to auscultation. CARDIOVASCULAR: He has a normal S1 and S2. I did not appreciate any murmurs, rubs or gallops. ABDOMEN: Soft. EXTREMITIES: Free from edema. CARDIOLOGY STUDIES EKG shows normal sinus rhythm and is negative for any acute changes. LABORATORY DATA Lab values significant for a creatinine of 1.3 and serial troponins of less than 0.02/less than 0.02/less than 0.02. Toxicology is positive for cocaine, benzos, amphetamines and opiates. IMAGING STUDIES Chest x-ray shows clear lungs. IMPRESSION Atypical chest pain - the patient certainly does have multiple CV risk factors and prior coronary disease. He would not admit any cocaine use to me but did admit this to the other physicians. As well his tox screen is also consistent with the cocaine. The patient had been asymptomatic prior to the illicit drug use. At this point, the patient was counseled to stop doing illicit drugs. I think it is reasonable for him to be discharged from a CV perspective. He indicates he has a referral to a local flight engineer manager and will follow up with him. I will be available on a p.r.n. basis. Alida Zuniga/ /5:31 PM /7:51 PM
[2017-01-21] MEDS ORDERED: ATORVASTATIN 20 MG TAB PO SCH (21:00)
[2017-01-21] MEDS ORDERED: DOXYCYCLINE HYCLATE 100 MG CAP PO SCH (21:00)
[2017-01-21] MEDS ORDERED: PRAVASTATIN SOD 80 MG TAB PO SCH (21:00)
--- NOTE | 2017-01-21 22:58 | EKG ---
Date Performed: 01/21/2017 Time Performed: 08:22:12 PTAGE: 61 years EKG: Sinus rhythm ANTERIOR MYOCARDIAL INFARCTION INFERIOR MYOCARDIAL INFARCTION MODERATE T-WAVE ABNORMALITY ABNORMAL E CG PREVIOUS TRACING : 01/21/2017 02.26 Compared to prior tracing no significant change DOCTOR: Bhumi Teague Interpretating Date/Time 01/21/2017 22:56:28
--- NOTE | 2017-01-21 23:12 | EKG ---
Date Performed: 01/21/2017 Time Performed: 02:26:59 PTAGE: 61 years EKG: Sinus rhythm ANTERIOR MYOCARDIAL INFARCTION INFERIOR MYOCARDIAL INFARCTION ABNORMAL ECG PREVIOUS TRACING : 09/11/2016 08.47 Compared to prior tracing no significant change DOCTOR: Bhumi Teague Interpretating Date/Time 01/21/2017 23:09:56
--- NOTE | 2017-01-22 08:07 | EKG ---
Date Performed: 01/21/2017 Time Performed: 13:59:48 PTAGE: 61 years EKG: Sinus rhythm ANTERIOR MYOCARDIAL INFARCTION INFERIOR MYOCARDIAL INFARCTION MODERATE T-WAVE ABNORMALITY, CONSIDER LATERAL ISCHEMIA ABNORMAL ECG PREVIOUS TRACING : 01/21/2017 08.22 DOCTOR: Sriram Tripathi Interpretating Date/Time 01/22/2017 08:00:56
[2017-01-22] MEDS ORDERED: MUPIROCIN 2% OINT 22 GM TUBE TOPICAL SCH (09:00)
== END 2017-01-21 20:36 | disposition home or self-care (01) ==
LOC: PHED 02:16 → INTOOBSV 05:11 → PHEDA 05:11 → PHICU 06:34
PROVIDERS: ADMIT Family Medicine; ATTEND Family Medicine
DX: R07.89 Other chest pain (principal); R06.02 Shortness of breath; L03.113 Cellulitis of right upper limb; I25.10 Atherosclerotic heart disease of native coronary artery without angina pectoris; I25.2 Old myocardial infarction; R94.31 Abnormal electrocardiogram [ECG] [EKG]; I10 Essential (primary) hypertension; E78.5 Hyperlipidemia, unspecified; K21.9 Gastro-esophageal reflux disease without esophagitis; G62.9 Polyneuropathy, unspecified; F41.9 Anxiety disorder, unspecified; F32.9 Major depressive disorder, single episode, unspecified; F14.10 Cocaine abuse, uncomplicated; M19.90 Unspecified osteoarthritis, unspecified site; F17.200 Nicotine dependence, unspecified, uncomplicated; Z95.5 Presence of coronary angioplasty implant and graft; Z79.899 Other long term (current) drug therapy; Z79.02 Long term (current) use of antithrombotics/antiplatelets; Z79.82 Long term (current) use of aspirin
CPT/HCPCS: 71010; 80048; 80162; 80307; 82550; 82552; 83605; 83735; 84484; 85025; 85610; 85730; 87040; 93005; 96365; 96367; 99285; G0378; J1644; J2543; J3370; J7030; J7040; J7050